=== PATIENT | female | born 1940 | race Caucasian/White ===

== ENCOUNTER 2017-05-13 16:07 | Emergency (ER) | payer MEDICARE, OTHER ==
[2017-05-13] MEDS ORDERED: HYDROcodone/Acetaminophen 5/325 mg Tablet ONE (16:31)
== END 2017-05-13 16:53 | disposition home or self-care (01) ==
LOC: SCSER 16:07
DX: S16.1XXA Strain of muscle, fascia and tendon at neck level, initial encounter (principal); E03.9 Hypothyroidism, unspecified; K21.9 Gastro-esophageal reflux disease without esophagitis; E78.5 Hyperlipidemia, unspecified; I10 Essential (primary) hypertension; J44.9 Chronic obstructive pulmonary disease, unspecified; E11.9 Type 2 diabetes mellitus without complications; M19.90 Unspecified osteoarthritis, unspecified site; F32.9 Major depressive disorder, single episode, unspecified; Z87.891 Personal history of nicotine dependence; X50.0XXA Overexertion from strenuous movement or load, initial encounter
CPT/HCPCS: 99283

== ENCOUNTER 2017-07-28 14:16 | Emergency (ER) | payer MEDICARE, OTHER | END 2017-07-28 16:44 | disposition left against medical advice (07) | LOC: ERS 14:16 | DX: Z53.21 Procedure and treatment not carried out due to patient leaving prior to being seen by health care provider (principal) ==

== ENCOUNTER 2017-07-28 15:14 | Inpatient (IN) | payer MEDICARE, OTHER ==
[2017-07-28 16:13] LABS: INR-International Normal Ratio 1.1; PTT 29.6 SEC (22.9-36.1); Prothrombin Time 14.5 SEC (12.0-14.7)
[2017-07-28 16:18] LABS: Band 2 % (5-11); Hemoglobin 10.8 g/dL (12.0-16.0); Hypochromia SLIGHT = 6-15 cells (100X) (0-5/hpf); Lymphocytes 3 % (21-51); MDiff Complete? YES; Mean Corpuscular HGB CONC 33.8 g/dL (32.0-36.0); Mean Corpuscular Hemoglobin 29.7 pg (27.0-31.0); Mean Platelet Volume 8.7 fL (7.4-10.4); Monocytes 5 % (0-10); Neutrophil 90 % (42-75); PLT Morphology Comment Appears Adequate; Platelet Count 161 thou/uL (130-400); RBC Distribution Width 13.9 % (11.5-14.5); Red Blood Cell (RBC) Count 3.65 mill/uL (4.20-5.40); Stomatocytes SLIGHT = 2-5 cells (100X) (0-1/hpf); White Blood Cell (WBC) Count 20.4 thou/uL (4.8-10.8)
[2017-07-28 16:22] LABS: ALT (SGPT) 26 U/L (8-55); AST (SGOT) 17 U/L (5-34); Alkaline Phosphatase 75 U/L (40-150); Anion Gap 16 mmol/L (10-20); BUN (Urea Nitrogen) 21 mg/dL (9.8-20.1); Bilirubin, Total 0.7 mg/dL (0.2-1.2); CK (CPK) 118 U/L (29-168); Calc. Creatinine Clearance 0 mL/min (70-130); Calcium 9.5 mg/dL (7.8-10.44); Carbon Dioxide 25 mmol/L (23-31); Chloride 102 mmol/L (98-107); Estimated GFR-MDRD 79; Globulin 2.7 g/dL (2.4-3.5); Glucose 177 mg/dL (83-110); Potassium 4.6 mmol/L (3.5-5.1); Protein, Total 6.7 g/dL (6.0-8.3); Sodium 138 mmol/L (136-145)
[2017-07-28 16:23] LABS: CKMB 2.5 ng/mL (0-6.6); Troponin I 0.016 ng/mL (< 0.028)
[2017-07-28] MEDS ORDERED: HYDROcodone/Acetaminophen 10/325 mg Tablet ONE (16:25)
--- NOTE | 2017-07-28 16:30 | RAD ---
AP VIEW CHEST: Date: 07/28/17 HISTORY: Cough. FINDINGS: Comparison made to previous exam from 12/26/16. AP view of chest demonstrates a left shoulder arthroplasty. The lungs are well aerated. No evidence o f acute intrathoracic abnormality is seen. No evidence of effusions, pneumonia, or pneumothorax seen. IMPRESSION: Unremarkable AP view of chest. POS: [facility]
[2017-07-28] MEDS ORDERED: Magnesium Sulfate 2 GM/NS 0.9% 50 ML BAG ONE (16:38)
[2017-07-28] MEDS ORDERED: methylPREDNISolone Sod Succ/PF 125 MG/2 ML VIAL ONE (16:38)
[2017-07-28] MEDS ORDERED: Sodium Chloride 0.9% 100 ML ONE (16:38)
[2017-07-28] MEDS ORDERED: Water For Inject, Bacteriostat 30 ML ONE (16:38)
[2017-07-28] MEDS ORDERED: cefTRIAXone\\ROCEPHIN 1 GM VIAL ONE (16:38)
[2017-07-28 17:02] LABS: Bilirubin Negative (Negative); Blood, Urine Negative (Negative); Clarity Hazy (Clear); Glucose, Urine (Dipstick) Negative (Negative); Leukocyte Small (Negative); Nitrite Positive (Negative); Protein, Urine (Dipstick) Trace mg/dL (Neg-Trace); Urobilinogen 0.2 mg/dL (0.2-1.0); pH, Urine 5.5 (5.0-9.0)
[2017-07-28 17:03] LABS: Bacteria/HPF 4+ HPF (None Seen); RBC/HPF None Seen HPF (0-3)
[2017-07-28 18:45] VITALS: BMI 32.3
[2017-07-28] MEDS ORDERED: Acetaminophen 325 MG TAB PO PRN ×2 (19:08→19:09)
[2017-07-28] MEDS ORDERED: Guaifenesin DM 100-10/5 ML UDCUP PO PRN (19:08)
[2017-07-28] MEDS ORDERED: Albuterol Sulfate 2.5 mg/3 ml Neb NEB PRN (19:08)
[2017-07-28] MEDS ORDERED: HYDROcodone/Acetaminophen 5/325 mg Tablet PO PRN ×2 (19:09)
[2017-07-28] MEDS ORDERED: Ondansetron HCl/PF 4 MG/2 ML Vial IVP PRN (19:09)
[2017-07-28] MEDS ORDERED: Ondansetron ODT 4 MG TAB SL PRN (19:09)
[2017-07-28] MEDS ORDERED: Azithromycin 500 MG in Sodium Chloride 0.9% 250 ML 250 ML IVPB SCH (19:15)
[2017-07-28 20:05] LABS: Troponin I Less than 0.010 ng/mL (< 0.028)
[2017-07-28] MEDS: Docusate 100 MG CAP PO SCH (20:21)
--- NOTE | 2017-07-28 20:36 | HP ---
DATE OF ADMISSION: 07/28/2017 CHIEF COMPLAINT: Shortness of breath. HISTORY OF PRESENT ILLNESS: This is a 77-year-old white female with a known history of COPD. She se es Dr. Ralph, Pulmonary, and she has a history of hypertension and hyperlipidemia. The patient was in her usual state of health until few days ago when she was visiting a [place] where she had a work for 5-7 miles and she was very tired in the heat and was having some cough and congestion. F ollowing this, she went to [place] to her granddaughter's graduation and where she had a fall and i njuring her left knee with the fracture of the tibia. The patient came to the [facility] tod luis miguel because of the worsening shortness of breath and she was noted to have saturations 88% in the ER a nd was started on nasal cannula oxygen on 4 liters and was also given Solu-Medrol and breathing treat ments almost for an hour. Following this, the patient was a little bit stabilized and she was transf erred for admission to [facility]. The patient was seen on the floor. She was alert and or iented, did not appear to be in any acute distress. She was continued on the breathing treatments. She is alert and oriented. She complains of pain at the left lower leg 7 on 10 intensity and relieved with pain medication. She was told by the ER physician that Orthopedic has been consulted and will be planning to see her geraldine rrow. The patient denied having any abdominal pain, no nausea, no vomiting, no diarrhea. She feels the current trigger for her COPD is her walking in the streets of [place]. PAST MEDICAL HISTORY: 1. Chronic obstructive pulmonary disease. 2. Chronic hypoxic respiratory failure. 3. Coronary artery disease with mild reversible defect in the LAD region by stress testing. 4. Gastroesophageal reflux disease. 5. Hypothyroidism. 6. Dyslipidemia. 7. Restless leg syndrome. 8. Hypertension. 9. Type 2 diabetes mellitus. 10. Degenerative joint disease. PAST SURGICAL HISTORY: Status post cholecystectomy, status post hernia repair, status post right tot al hip arthroplasty, status post shoulder arthroplasty. HOME MEDICATIONS: 1. Albuterol inhalation. 2. Enteric-coated aspirin 81 mg. 3. Lipitor 10 mg p.o. daily at bedtime. 4. Symbicort 160/4.5. 5. Vitamin D3. 6. Vitamin B12. 7. Nexium 40 mg daily. 8. Combivent 1 puff inhalation b.i.d. 9. Levothyroxine 100 mg daily. 10. Metoprolol 25 mg p.o. daily. 11. Benicar. 12. Zoloft 100 mg daily. 13. Spiriva HandiHaler 18 mcg. 14. Janumet mg 1 tablet p.o. at bedtime. ALLERGIES: No known drug allergies. FAMILY HISTORY: Positive for CVA in her father. Sister after complications of the chronic COPD. SOCIAL HISTORY: The patient is a former smoker, quit smoking 10 years ago. No history of alcohol, n o history of illicit drug use. REVIEW OF SYSTEMS: All 12 systems are reviewed with the patient thoroughly and found to be negative at this time. Constitutional: Weight loss or gain, sense of well-being, ability to conduct usual activities, exerc ise tolerance. Skin/Breast: Rash, itching, changes in hair growth or loss, nail changes, breast lumps, tenderness, swelling, nipple discharge. Eyes: Vision, double vision, tearing, blind spots, pain. ENT/Mouth: Headaches (location, time of onset, duration, precipitating factors), vertigo, lightheadedness, injury. Vision, double vision, tearing, blind spots, pain, nose b leeding, colds, obstruction, discharge, dental difficulties, gingival bleeding, dentures, neck stiffn ess, pain, tenderness, masses in thyroid or other areas Cardiovascular: Precordial pain, substernal distress, palpitations, syncope, dyspnea on exertion, or thopnea, nocturnal paroxysmal dyspnea, edema, cyanosis, hypertension, heart murmurs, varicosities, ph lebitis, claudication. Respiratory: Pain, shortness of breath, wheezing, stridor, cough, hemoptysis, fever or night sweats Gastrointestinal: Poor appetite, dysphagia, indigestion, abdominal pain, heartburn, eructation, naus ea, vomiting, hematemesis, jaundice, constipation, or diarrhea, abnormal stools (cortes-colored, tarry, bloody, greasy, foul smelling), flatulence, hemorrhoids, recent changes in bowel habits. Genitourinary: Urgency, frequency, dysuria, nocturia, hematuria, polyuria, oliguria, unusual (or chela nge in) color of urine, stones, hesitancy, change in size of stream, dribbling, acute retention or in continence, libido, potency. Musculoskeletal: Pain, swelling, redness or heat of muscles or joints, limitation, of motion, muscular weakness, atrophy, cramps. Neurologic/Psychiatric: Convulsions, paralyses, tremor, incoordination, parasthesias, difficulties w ith memory of speech, sensory or motor disturbances, or muscular coordination (ataxia, tremor), emoti onal problems, anxiety, depression, previous psychiatric care, unusual perceptions, hallucinations. Allergy/Immunologic: Skin rash, anemia, bleeding tendency, polydipsia, polyuria, intolerance to heat or cold. PHYSICAL EXAMINATION: VITAL SIGNS: Blood pressures are 126/72, heart rate of 76, respiratory rate 18, saturation 92% on 2 liters. GENERAL: The patient is a moderately built, moderately nourished. She does not appear to be in acut e distress. CARDIOVASCULAR: S1, S2 normal. No murmurs, rubs or gallops. HEENT: Atraumatic, normocephalic. PERRLA. Extraocular movements are intact. Oral mucosa is pink a nd moist. LUNGS: Bilateral air entry was equal. Wheezing was noted bilaterally. No crackles were noted. ABDOMEN: Soft, nontender, no guarding, no rebound tenderness. Bowel sounds normal. MUSCULOSKELETAL: No calf tenderness. No pedal edema. No joint tenderness. No joint swelling. Lef t lower extremity is in splint with reduced range of motion and tenderness in the knee area. SKIN: No cyanosis, no erythema, no rash. POLICY ADVISOR: Cranial nerve examination II-XII intact. No focal deficits were noted. PSYCHIATRIC: No signs of suicidal ideation. No signs of hedy. No signs of depression. LABORATORY DATA: 1. WBC was 20.4, hemoglobin is 10.8, hematocrit 32.1, platelets are 161. UA was positive for urinar y tract infection. 2. Sodium is 138, potassium 4.6, chloride 102, bicarbonate is 25, BUN is 21, creatinine 0.72. ASSESSMENT: 1. Sepsis. 2. Acute pyelonephritis. 3. Acute chronic obstructive pulmonary disease exacerbation. 4. Acute hypoxic respiratory failure. 5. Type 2 diabetes mellitus. 6. Hypertension. 7. Hyperlipidemia. 8. Left tibial fracture. PLAN: 1. Plan is to start the patient on IV antibiotics with levofloxacin 750 mg IV daily. Most likely th e source of infection is urinary tract infection. We will wait for urine cultures. 2. The patient has evidence of COPD exacerbation and has hypoxia. We will start the patient on Solu -Medrol 40 mg q.6 hours and we will continue with DuoNebs and albuterol nebulizer treatments. If the patient's respiratory status worsens, we will consult Pulmonary at that time. 3. The patient has hypoxic respiratory failure. She has home oxygen. She uses as needed, but raulrobyn tarik her oxygen requirements has gone up and initially she was saturating on 4 liters at 88%. We michael l closely monitor. 4. Type 2 diabetes mellitus, well-controlled. We will continue to monitor. We will restart the pat ient's home medications. 5. The patient has a left knee fracture. X-rays are not available as the x-rays were done in [facility]. Orthopedics have been consulted and the ER physician discussed with the Orthopedics and he planned to see the patient tomorrow. I would wait for their recommendations at that time. 6. DVT prophylaxis, SCDs. I spent 75 minutes with this patient.
[2017-07-28 22:16] LABS: Troponin I Less than 0.010 ng/mL (< 0.028)
[2017-07-28] MEDS: HYDROcodone/Acetaminophen 5/325 mg Tablet PO PRN (22:27)
[2017-07-28] MEDS: Ondansetron ODT 4 MG TAB PO PRN (22:28)
[2017-07-28] MEDS ORDERED: methylPREDNISolone Sod Succ/PF 125 MG/2 ML VIAL IVP SCH (23:59)
[2017-07-29 05:37] LABS: Anion Gap 9 mmol/L (10-20); BUN (Urea Nitrogen) 22 mg/dL (9.8-20.1); Calc. Creatinine Clearance 92 mL/min (70-130); Calcium 8.9 mg/dL (7.8-10.44); Carbon Dioxide 30 mmol/L (23-31); Chloride 100 mmol/L (98-107); Estimated GFR-MDRD 81; Glucose 265 mg/dL (83-110); Potassium 4.3 mmol/L (3.5-5.1); Sodium 135 mmol/L (136-145)
[2017-07-29 05:38] LABS: #Lymphocytes 0.4 thou/uL (1.20-3.40); #Monocytes 0.5 thou/uL (0.11-0.59); #Neutrophils 11.6 thou/uL (1.40-6.50); %Eosinophils 0.1 % (0.0-10.0); %Lymphocytes 3.3 % (21.0-51.0); %Monocytes 3.9 % (0.0-10.0); %Neutrophils 92.7 % (42.0-75.0); Mean Corpuscular HGB CONC 32.8 g/dL (32.0-36.0); Mean Corpuscular Hemoglobin 30.6 pg (27.0-31.0); Mean Corpuscular Volume 93.3 fl (81.0-99.0); Mean Platelet Volume 8.5 fL (7.4-10.4); Platelet Count 144 thou/uL (130-400); RBC Distribution Width 13.7 % (11.5-14.5); Red Blood Cell (RBC) Count 3.25 mill/uL (4.20-5.40); White Blood Cell (WBC) Count 12.6 thou/uL (4.8-10.8)
[2017-07-29] MEDS: HYDROcodone/Acetaminophen 5/325 mg Tablet PO PRN ×5 (06:33→23:03)
[2017-07-29] MEDS: Ondansetron ODT 4 MG TAB PO PRN ×3 (06:35→23:03)
[2017-07-29] MEDS: guaiFENesin ER 600 MG TAB PO SCH ×2 (09:05→20:45)
[2017-07-29] MEDS: Docusate 100 MG CAP PO SCH ×2 (09:05→20:45)
[2017-07-29] MEDS: Enoxaparin Sodium 40 MG/0.4 ML SYRINGE SC SCH (09:06)
--- NOTE | 2017-07-29 09:20 | RAD ---
TWO VIEWS LEFT KNEE: DATE: 07/29/17. HISTORY: Proximal tibial fracture. FINDINGS: Overlying knee brace is in place. This limits evaluation, but there does appear to be a transverse f racture involving the proximal left proximal left tibial metaphysis. Fracture extending to the tibia l plateau would be difficult to exclude given the overlying structures. There is also a fracture inv olving the proximal left fibula with slight displacement of fracture fragments. There is narrowing o f the medial and lateral joint compartments, greater involving the lateral joint compartment. N disl ocation is seen. There is subcutaneous soft tissue swelling seen anterior to the left knee. IMPRESSION: Fractures involving the proximal left tibia and fibula. Fractures involving the fibula are and mildly displaced. POS: [facility]
--- NOTE | 2017-07-29 09:27 | RAD ---
TWO VIEWS LEFT TIBIA AND FIBULA: Date: 07-29-17 History: History of tibia and fibula fracture. FINDINGS: There is a transverse fracture involving the proximal left tibial metaphysis. Due to overlying artifa ct from overlying brace, fracture to the tibial plateau is difficult to entirely exclude. There is al so a fracture involving the proximal left fibula with separation of the fracture fragments with the p roximal fracture fragment displaced posteriorly by 1.4 cm. There is narrowing of both medial and late ral joint compartment. No additional obvious fracture is seen. There is no dislocation. Subsequent so ft tissue swelling seen anterior to the knee. IMPRESSION: Fractures involving the proximal left tibia and fibula. POS: [facility]
--- NOTE | 2017-07-29 11:06 | RAD ---
LEFT ANKLE THREE VIEWS: History: 77-year-old female with history of tibia and fibular fracture. Comparison: Prior left tibia and fibula. Three views of the ankle demonstrate medial and lateral soft tissue swelling. There are degenerative changes of the ankle joint including some minimal subchondral cystic changes of the medial talar dome , evidence for an osteochondral lesion which may well be remote. No acute fracture. Degenerative rizzo ges including calcaneal plantar and Achilles enthesophytes and osteophytic changes of the midfoot. IMPRESSION: No evidence for acute fracture or dislocation of the ankle. Degenerative changes. Probable subchondra l cystic change involving the medial talar dome, evidence for an osteochondral lesion, probably remot e. No significant acute process. POS: [facility]
--- NOTE | 2017-07-29 13:05 | CON ---
DATE OF CONSULTATION: 07/29/2017 CONSULTING PHYSICIAN: Shaw Cook M.D. REASON FOR CONSULTATION: Left knee pain and injury. HISTORY OF PRESENT ILLNESS: This is a 77-year-old female who presented to our facility with complaints of shortness of breath. She has a strong history of heavy smoking and COPD. She also has a history of hypertension and hyperlipidemia. She was visiting family in [place] and before going onto her granddaughter's graduation in [place], [place]. She sustained a fall in [place] injuring her left knee and sustaining a tibial plateau fracture. She came back to the [facility] as she resides here and her daughter lives here as well. She was noted to have shortness of breath that was worsening and saturations in the 88 percentage in the ER. She has been admitted and is under the care of the medicine team as well as pulmonary team. We have been consulted for her left leg. She has been found to have a proximal tibia fracture. She also reports some mild ankle pain. She denies any numbness or tingling. She states that she has a known history of degenerative joint disease in the left knee and is planning to have her knee replaced sometime in the future. She has also had a previous right total hip replacement. She normally sees Dr. Roman or Dr. Whitfield. She is currently in a knee immobilizer. She reports no pain at rest. PAST MEDICAL HISTORY: Significant for COPD, hypertension, dyslipidemia, restless leg syndrome, diabetes type 2, and degenerative joint disease. PAST SURGICAL HISTORY: Cholecystectomy, hernia, right total hip and shoulder arthroplasty. ALLERGIES: No known drug allergies. FAMILY HISTORY: Noncontributory. SOCIAL HISTORY: The patient is a former heavy smoker, states that she quit in 1993. No history of alcohol or illicit drug use. REVIEW OF SYSTEMS: A 12-point review of systems was conducted and otherwise negative except for as stated above. PHYSICAL EXAMINATION: VITAL SIGNS: Temperature 97.7, pulse 100, respiratory rate of 20, blood pressure of 126/64. GENERAL: The patient is awake, alert, and oriented x3. She is in no acute distress. She is pleasant and cooperative with exam findings today. HEENT: Head is normocephalic, atraumatic. NECK: Supple. BREATHING: Nonlabored at this time. She is on nasal cannula oxygen. EXTREMITIES: The left lower extremity was evaluated. There is a knee immobilizer intact. The patient has soft tissue swelling present at the knee and into the lower leg and ankle. She is mildly tender at the proximal tibia. She is also mildly tender along the medial ankle. No significant lateral sided ankle tenderness. Pain elicited with active range of motion in the ankle. Range of motion not assessed in the knee. Distal neurovascular status is intact. No pain on passive stretch. Remainder of extremity exam is unremarkable. SKIN: Intact. RADIOGRAPHIC FINDINGS: Including a tib/fib of the left shows evidence of a proximal left tibia and fibula fractures. There does not appear to be any joint depression. There is evidence of subchondral sclerosis and osteophyte formation present. Of significance, there does appear to be a disruption in the medial malleolus. This is not visualized well on tibia films. We will obtain dedicated ankle films. ASSESSMENT: Left proximal tibia fracture, left ankle pain. PLAN: At this time, we will place the patient in a hinged knee brace allowing her 0-60 degrees of flexion. She will be toe touch weightbearing. We will obtain dedicated ankle films. Plan of care and x-rays were discussed with Dr. Cook today. He is in agreeance. The patient will plan to follow up with Dr. Roman in the clinic when she is discharged from the hospital. We will follow up with her once the ankle films are obtained. She is in agreeance with this plan of care and verbalized understanding. This is a nonoperative fracture at this time. [facility]
--- NOTE | 2017-07-29 14:26 | PDOC.PN ---
- Subjective Encounter Start Date: 07/29/17 Encounter Start Time: 10:00 Patient is seen today, Continuos to have SOb an Cough and Congestion. No nausea or Vomting noted. - Objective Resuscitation Status: Resuscitation Status FULL:Full Resuscitation MAR Reviewed: Yes Vital Signs & Weight: Vital Signs (12 hours) Temp Pulse Resp BP Pulse Ox 07/29/17 11:43 98.3 F 84 20 148/70 H 99 07/29/17 10:47 87 20 94 L 07/29/17 08:00 97.7 F 100 20 126/64 78 L 07/29/17 07:19 82 20 94 L 07/29/17 04:00 97.8 F 81 20 107/57 L 95 07/29/17 03:01 86 18 93 L Weight Weight 188 lb 6.4 oz I&O: 07/28/17 07/29/17 07/30/17 06:59 06:59 06:59 Intake Total 350 600 Balance 350 600 Result Diagrams: 07/29/17 05:14 07/29/17 05:14 Radiology Reviewed by me: Yes EKG Reviewed by me: Yes Phys Exam - Physical Examination HEENT: PERRLA, moist MMs Neck: no nodes Respiratory: no rales, wheezing present Cardiovascular: RRR, no significant murmur Gastrointestinal: soft, non-tender Musculoskeletal: no edema, pulses present Neurological: non-focal, normal sensation Lymphatic: no nodes Psychiatric: normal affect, A&O x 3 Dx/Plan (1) Acute and chronic respiratory failure with hypoxia Code(s): J96.21 - ACUTE AND CHRONIC RESPIRATORY FAILURE WITH HYPOXIA Status: Acute Comment: Improiving pt on Home Oxygen 2 Liter NC. (2) Acute exacerbation of chronic obstructive pulmonary disease (COPD) Code(s): J44.1 - CHRONIC OBSTRUCTIVE PULMONARY DISEASE W (ACUTE) EXACERBATION Status: Acute Comment: Will continue with Solumedrol/ Duo Nebs and Albuteral Nebs. Will do Acapella, and Mucinex for improved clearance. (3) Hyperglycemia Code(s): R73.9 - HYPERGLYCEMIA, UNSPECIFIED Status: Acute Comment: Will cotninue SSI, Levelmir. (4) Sepsis Code(s): A41.9 - SEPSIS, UNSPECIFIED ORGANISM Status: Acute Qualifiers: Sepsis type: Escherichia coli Qualified Code(s): A41.51 - Sepsis due to Escherichia coli [E. coli] Comment: Will continue With levofloxacin, responding to IV Abx, waiting for culture sentitvity. (5) Acute pyelonephritis Code(s): N10 - ACUTE PYELONEPHRITIS Status: Acute - Plan cont current plan of care, dillon catheter, continue antibiotics, PT/OT, respiratory therapy, incentive spirometry, out of bed/ambulate, DVT proph w/ lovenox * . Review of Systems - Review of Systems Eyes: negative: Pain, Vision Change, Conjunctivae Inflammation, Eyelid Inflammation, Redness, Other ENT: negative: Ear Pain, Ear Discharge, Nose Pain, Nose Discharge, Nose Congestion, Mouth Pain, Mouth Swelling, Throat Pain, Throat Swelling, Other Respiratory: Shortness of Breath, SOB with Excertion, Wheezing Cardiovascular: negative: chest pain, palpitations, orthopnea, paroxysmal nocturnal dyspnea, edema, light headedness, other Gastrointestinal: negative: Nausea, Vomiting, Abdominal Pain, Diarrhea, Constipation, Melena, Hematochezia, Other Genitourinary: negative: Dysuria, Frequency, Incontinence, Hematuria, Retention , Other Musculoskeletal: negative: Neck Pain, Shoulder Pain, Arm Pain, Back Pain, Hand Pain, Leg Pain, Foot Pain, Other Neurological: negative: Weakness, Numbness, Incoordination, Change in Speech, Confusion, Seizures, Other - Medications/Allergies Allergies/Adverse Reactions: Allergies Allergy/AdvReac Type Severity Reaction Status Date / Time No Known Allergies Allergy Verified 07/29/17 05:21 Medications: Current Medications Acetaminophen (Tylenol) 650 mg PO Q4H PRN PRN Reason: Headache/Fever or Pain Hydrocodone Bitart/Acetaminophen ([place] 5/325) 1 tab PO Q4H PRN PRN Reason: Moderate Pain (4-6) Last Admin: 07/29/17 11:03 Dose: 1 tab Albuterol Sulfate (Ventolin) 2.5 mg NEB [id number] PRN PRN Reason: SOB &/or Wheezing Albuterol/Ipratropium (Duoneb) 3 ml NEB [id number] [facility] Last Admin: 07/29/17 10:47 Dose: 3 ml Docusate Sodium (Colace) 100 mg PO BID [facility] Last Admin: 07/29/17 09:05 Dose: 100 mg Enoxaparin Sodium (Lovenox) 40 mg SC 0900 [facility] Last Admin: 07/29/17 09:06 Dose: 40 mg Guaifenesin (Mucinex) 1,200 mg PO Q12HR [facility] Last Admin: 07/29/17 09:05 Dose: 1,200 mg Guaifenesin/Dextromethorphan (Robitussin Dm) 15 ml PO Q4H PRN PRN Reason: Cough Levofloxacin 750 mg/ Device 150 mls @ 100 mls/hr IVPB Q24HR [facility] Last Admin: 07/28/17 20:21 Dose: 150 mls Methylprednisolone Sodium Succinate (Solu-Medrol) 40 mg IVP Q6HR [facility] Last Admin: 07/29/17 12:59 Dose: 40 mg Ondansetron HCl (Zofran Odt) 4 mg PO Q6H PRN PRN Reason: Nausea/Vomiting Last Admin: 07/29/17 06:35 Dose: 4 mg
[2017-07-29] MEDS ORDERED: Dextrose 5% in Water 1,000 ML IV PRN (17:35)
[2017-07-29] MEDS ORDERED: Dextrose 50% Abboject 50 ML SYRINGE IVP PRN (17:35)
[2017-07-29] MEDS ORDERED: HumaLOG 300 UNITS/3 ML VIAL SC PRN (17:35)
[2017-07-30 05:42] LABS: #Lymphocytes 0.4 thou/uL (1.20-3.40); #Monocytes 0.5 thou/uL (0.11-0.59); #Neutrophils 10.6 thou/uL (1.40-6.50); %Eosinophils 0.2 % (0.0-10.0); %Lymphocytes 3.8 % (21.0-51.0); %Monocytes 4.6 % (0.0-10.0); %Neutrophils 91.4 % (42.0-75.0); Hemoglobin 9.9 g/dL (12.0-16.0); Mean Corpuscular HGB CONC 31.5 g/dL (32.0-36.0); Mean Corpuscular Hemoglobin 29.4 pg (27.0-31.0); Mean Corpuscular Volume 93.4 fl (81.0-99.0); Mean Platelet Volume 8.7 fL (7.4-10.4); Platelet Count 147 thou/uL (130-400); RBC Distribution Width 13.5 % (11.5-14.5); Red Blood Cell (RBC) Count 3.38 mill/uL (4.20-5.40); White Blood Cell (WBC) Count 11.6 thou/uL (4.8-10.8)
[2017-07-30 05:53] LABS: Anion Gap 13 mmol/L (10-20); BUN (Urea Nitrogen) 22 mg/dL (9.8-20.1); Calc. Creatinine Clearance 96 mL/min (70-130); Calcium 9.2 mg/dL (7.8-10.44); Carbon Dioxide 29 mmol/L (23-31); Chloride 100 mmol/L (98-107); Estimated GFR-MDRD 86; Glucose 227 mg/dL (83-110); Potassium 4.5 mmol/L (3.5-5.1); Sodium 137 mmol/L (136-145)
[2017-07-30] MEDS: HumaLOG 300 UNITS/3 ML VIAL SC PRN ×3 (06:09→18:13)
--- NOTE | 2017-07-30 07:37 | ADD-CON ---
ADDENDUM Ankle x-rays reviewed with Dr. Cook. These do not demonstrate any acute fracture. There are de generative changes throughout the ankle. The patient was informed of these findings. She states she has some soreness overall in her ankle. We will order ice therapy. If she continues to report swel ling, we may add an Alejandro wrap to her ankle. Plan of care continues as stated previously. Weightbear as tolerated to the left lower extremity. Brace 0-60 degrees hinged at the knee. She will follow up with Dr. Roman in 2 weeks for outpatient evaluation.
[2017-07-30] MEDS: HYDROcodone/Acetaminophen 5/325 mg Tablet PO PRN ×3 (08:41→18:14)
[2017-07-30] MEDS: Docusate 100 MG CAP PO SCH ×2 (08:42→20:22)
[2017-07-30] MEDS: guaiFENesin ER 600 MG TAB PO SCH ×2 (08:42→20:22)
[2017-07-30] MEDS: Enoxaparin Sodium 40 MG/0.4 ML SYRINGE SC SCH (08:42)
[2017-07-30] MEDS: Cyclobenzaprine 10 MG TAB PO PRN (16:33)
[2017-07-30] MEDS ORDERED: rOPINIRole HCl 0.25 MG TAB PO SCH (21:00)
[2017-07-31 05:27] LABS: #Lymphocytes 0.5 thou/uL (1.20-3.40); #Monocytes 0.6 thou/uL (0.11-0.59); #Neutrophils 9.9 thou/uL (1.40-6.50); %Basophils 0.1 % (0.0-1.0); %Eosinophils 0.2 % (0.0-10.0); %Lymphocytes 4.6 % (21.0-51.0); %Neutrophils 90.1 % (42.0-75.0); Hemoglobin 9.9 g/dL (12.0-16.0); Mean Corpuscular HGB CONC 32.6 g/dL (32.0-36.0); Mean Platelet Volume 8.5 fL (7.4-10.4); Platelet Count 157 thou/uL (130-400); RBC Distribution Width 13.4 % (11.5-14.5)
[2017-07-31] MEDS: HumaLOG 300 UNITS/3 ML VIAL SC PRN ×2 (05:32→11:59)
[2017-07-31] MEDS ORDERED: Levothyroxine Sodium 88 MCG TAB PO SCH (06:00)
[2017-07-31] MEDS: Enoxaparin Sodium 40 MG/0.4 ML SYRINGE SC SCH (08:56)
[2017-07-31] MEDS: guaiFENesin ER 600 MG TAB PO SCH (08:58)
[2017-07-31] MEDS: Docusate 100 MG CAP PO SCH (08:58)
[2017-07-31] MEDS ORDERED: Aspirin 81 mg Enteric Coated Tablet PO SCH (09:00)
[2017-07-31] MEDS ORDERED: Atorvastatin Calcium 10 MG TAB PO SCH (09:00)
[2017-07-31] MEDS ORDERED: ROFLUMILAST 500 MCG PO SCH (09:00)
--- NOTE | 2017-07-31 11:26 | PDOC.PN ---
- Subjective Encounter Start Date: 07/31/17 Encounter Start Time: 08:00 Subjective: breathing better, talking in full sentences. - Objective Resuscitation Status: Resuscitation Status FULL:Full Resuscitation MAR Reviewed: Yes Vital Signs & Weight: Vital Signs (12 hours) Temp Pulse Resp BP Pulse Ox 07/31/17 08:29 97.7 F 95 20 138/64 96 07/31/17 06:17 67 16 98 07/31/17 04:00 97.5 F L 95 18 142/65 H 95 07/31/17 02:32 97 07/31/17 02:18 16 07/31/17 00:00 97.5 F L 77 18 165/77 H 97 Weight Weight 188 lb 6.4 oz I&O: 07/30/17 07/31/17 08/01/17 06:59 06:59 06:59 Intake Total 1600 1750 480 Balance 1600 1750 480 Result Diagrams: 07/31/17 04:48 07/30/17 05:04 Additional Labs: Accuchecks 07/31/17 07/30/17 05:21 17:19 POC Glucose 239 H 255 H Phys Exam - Physical Examination HEENT: PERRLA, moist MMs Neck: no JVD, supple Respiratory: no wheezing, no rales rhonchi++ Cardiovascular: RRR, no significant murmur Gastrointestinal: soft, non-tender, positive bowel sounds Musculoskeletal: no edema, pulses present Neurological: non-focal, moves all 4 limbs Psychiatric: normal affect, A&O x 3 Dx/Plan (1) Acute and chronic respiratory failure with hypoxia Code(s): J96.21 - ACUTE AND CHRONIC RESPIRATORY FAILURE WITH HYPOXIA Status: Acute Comment: Improiving pt on Home Oxygen 2 Liter NC. (2) Acute exacerbation of chronic obstructive pulmonary disease (COPD) Code(s): J44.1 - CHRONIC OBSTRUCTIVE PULMONARY DISEASE W (ACUTE) EXACERBATION Status: Acute (3) Anxiety and depression Code(s): F41.9 - ANXIETY DISORDER, UNSPECIFIED; F32.9 - MAJOR DEPRESSIVE DISORDER, SINGLE EPISODE, UNSPECIFIED Status: Chronic (4) Diabetes type 2, controlled Code(s): E11.9 - TYPE 2 DIABETES MELLITUS WITHOUT COMPLICATIONS Status: Chronic Qualifiers: Diabetes mellitus nursing home insulin use: without nursing home use Diabetes mellitus complication status: with unspecified complications Qualified Code(s) : E11.8 - Type 2 diabetes mellitus with unspecified complications (5) Dyslipidemia Code(s): E78.5 - HYPERLIPIDEMIA, UNSPECIFIED Status: Chronic (6) GERD (gastroesophageal reflux disease) Code(s): K21.9 - GASTRO-ESOPHAGEAL REFLUX DISEASE WITHOUT ESOPHAGITIS Status: Chronic Qualifiers: Esophagitis presence: esophagitis presence not specified Qualified Code(s) : K21.9 - Gastro-esophageal reflux disease without esophagitis (7) Hypertension Code(s): I10 - ESSENTIAL (PRIMARY) HYPERTENSION Status: Chronic Qualifiers: Hypertension type: essential hypertension Qualified Code(s): I10 - Essential (primary) hypertension (8) Hypothyroidism Code(s): E03.9 - HYPOTHYROIDISM, UNSPECIFIED Status: Chronic Qualifiers: Hypothyroidism type: unspecified Qualified Code(s): E03.9 - Hypothyroidism , unspecified (9) Paroxysmal a-fib Code(s): I48.0 - PAROXYSMAL ATRIAL FIBRILLATION Status: Chronic Comment: No need for anticoag per Cardiology (10) fracture tibia Status: Acute - Plan hemostable -: may dc to rehab -: steroid taper, nebs -: levaquin for both uti and copd flare up -: no wtg bearing on left LE per pt, f/u with * .
[2017-07-31] MEDS: HYDROcodone/Acetaminophen 5/325 mg Tablet PO PRN (11:45)
[2017-07-31] MEDS: Cyclobenzaprine 10 MG TAB PO PRN (11:47)
[2017-07-31 12:47] VITALS: TEMP 98.3
[2017-07-31 13:58] VITALS: BP 141/66
--- NOTE | 2017-07-31 23:19 | DIS ---
DATE OF ADMISSION: 08/01/2017 DATE OF DISCHARGE: 08/01/2017 DISCHARGE DISPOSITION: To inpatient rehabilitation. PRIMARY DISCHARGE DIAGNOSES: Acute on chronic obstructive pulmonary disease exacerbation, which is resolving; acute on chronic respiratory failure with hypoxia, resolving. SECONDARY DISCHARGE DIAGNOSES: Left tibial fracture, gastroesophageal reflux disease, hypertension, hypothyroidism, paroxysmal atrial fibrillation, dyslipidemia, hypertension, diabetes mellitus type 2, anxiety disorder. PROCEDURES DONE DURING HOSPITALIZATION: Two-view left knee x-ray done showed fractures involving proximal left tibia and fibula. Two view left tibia and fibula showed prior fractures involving proximal left tibia and fibula. Chest x -ray done showed no acute infiltrate. Left ankle 3-view x-ray done showed no acute fracture or dislocation of the ankle. No significant acute process was seen in the ankle. Urine culture grew E. coli sensitive to quinolones. H&H 10 and 30, platelet count 157. White count of 11. Discharge BUN and creatinine is 22 and 0.6. Troponin x3 is negative. CK-MB 2.5. DISCHARGE MEDICATIONS: Aspirin 81 mg p.o. daily; Lipitor 10 mg p.o. daily; Symbicort inhaler 2 puffs twice daily; Flexeril 10 mg 3 times daily p.r.n.; Colace 100 mg p.o. twice daily; Nexium 40 mg p.o. daily; Mucinex 1200 mg p.o. twice daily; [place] p.r.n. for pain; DuoNebs q.6 hourly; Levaquin 500 mg p.o. daily for 6 days; Synthroid 88 mcg p.o. daily; Toprol-XL 25 mg daily; Benicar 40 mg daily; Lovaza 1 gram p.o. twice daily; prednisone 10 mg p.o. 3 times daily for 3 days, then twice daily for 3 days, then daily for 4 days, then half a tablet daily for 4 days; Daliresp 500 mcg p.o. daily; ropinirole 0.5 mg p.o. at bedtime; sertraline 100 mg p.o. daily; Janumet extended release mg 1 tab q.p.m.; Spiriva inhaler 2 puffs daily. ALLERGIES: No known drug allergies. INPATIENT CONSULTS: Dr. Cook/Dr. Roman for Orthopedic Surgery. DISCHARGE PLAN: Patient to follow up with primary care physician in 1 week. She needs to follow up with her integration project manager, Dr. Jose Pagan in [address] Roman in 2-4 weeks. BRIEF COURSE DURING HOSPITALIZATION: Patient initially got admitted with complaints of shortness of breath. She was admitted for COPD exacerbation and urinary tract infection. Patient was initially hypoxic and was diagnosed with acute respiratory failure with hypoxia as well and supplemented with nasal cannula. Patient had left knee fracture and was worried about her ankle as well. Hence x-rays of the knee and ankles were obtained. She has had consultation with Dr. Cook for Orthopedic Surgery. Patient to continue on immobilization in a brace as before and is for toe touch weightbearing. In view of deconditioning, patient is being discharged to inpatient rehab for further recuperation. Her COPD exacerbation is resolving at present. She needs to continue steroid taper as advised. A total of 35 minutes was spent on discharge plan. Please see a [id number] documentation on [facility] for the day of discharge. KOREY
--- NOTE | 2017-08-02 16:00 | PQF ---
MONIQUE TORRE VINAYA KUMAR MD [id number] [address] [place] [address] [id number] CLINICAL DOCUMENTATION CLARIFICATION FORM: POST DISCHARGE Please exercise your independent, professional judgment in responding to the clarification form. Clinical indicators are provided on the bottom of this form for your review. Thank you. Please check appropriate box(s) to clarify if the following diagnosis has been ruled in or ruled out: ____SEPSIS (CDI/Coding list diagnosis here) [ x ] Ruled in diagnosis [ ] Continue to treat [ ] Resolved [ ] Ruled out diagnosis [ ] Cannot rule out diagnosis [ x ] Other diagnosis _sec to uti [ ] Unable to determine In addition, please specify: Present on Admission (POA): [ x ] Yes [ ] No [ ] Unable to determine For continuity of documentation, please document condition throughout progress notes and discharge summary. Thank You. CLINICAL INDICATORS - SIGNS / SYMPTOMS / LABS To support the diagnosis - Sepsis documented in HP 07/29/2017, WBC 20.4, UTI - HP 07/29/2017 To support resolution of diagnosis - Sepsis not documented after 07/29/2017 PN RISK FACTORS UTI - Discharge Summary 08/01/2017 TREATMENTS IV Levaquin 750mg IV - 07/29/2017 PN (This form is maintained as a part of the permanent medical record) 2014 [employer]. All Rights Reserved Iraida Waller, CCS, SKI LIFT ATTENDANT, CASC [email or web address]
== END 2017-07-31 13:04 | DRG 871 ==
LOC: SCSER 15:14 → 2SE 16:45
PROVIDERS: ADMIT Family Medicine; ATTEND Family Medicine
DX: A41.9 Sepsis, unspecified organism (principal); J96.21 Acute and chronic respiratory failure with hypoxia; S82.102A Unspecified fracture of upper end of left tibia, initial encounter for closed fracture; N10 Acute pyelonephritis; J44.1 Chronic obstructive pulmonary disease with (acute) exacerbation; I10 Essential (primary) hypertension; I48.0 Paroxysmal atrial fibrillation; E78.5 Hyperlipidemia, unspecified; E03.9 Hypothyroidism, unspecified; I25.10 Atherosclerotic heart disease of native coronary artery without angina pectoris; K21.9 Gastro-esophageal reflux disease without esophagitis; G25.81 Restless legs syndrome; W19.XXXA Unspecified fall, initial encounter; F41.9 Anxiety disorder, unspecified; F32.9 Major depressive disorder, single episode, unspecified; E11.65 Type 2 diabetes mellitus with hyperglycemia; Z90.49 Acquired absence of other specified parts of digestive tract; Z96.641 Presence of right artificial hip joint; Z96.619 Presence of unspecified artificial shoulder joint; Z79.82 Long term (current) use of aspirin; Z79.51 Long term (current) use of inhaled steroids; Z79.899 Other long term (current) drug therapy; Z87.891 Personal history of nicotine dependence
CPT/HCPCS: 36415; 36416; 71045; 80048; 80053; 81003; 81015; 82550; 82553; 83605; 84484; 85025; 85610; 85730; 87040; 87070; 87077; 87086; 87186; 87205; 93005; 94640; A4353; G8978-GP-CL; G8979-GP-CI; G8987-GO-CK; G8988-GO-CJ; J0696; J1650; J1956; J2920; J2930; J3475; J7050; J7620; Q0162

== ENCOUNTER 2018-11-27 08:19 | Outpatient (CLI) | payer MEDICARE, OTHER ==
[2018-11-27 15:07] LABS: #Basophils 0.1 thou/uL (0.0-0.2); #Eosinphils 0.1 thou/uL (0.0-0.7); #Lymphocytes 2.5 thou/uL (1.20-3.40); #Monocytes 0.6 thou/uL (0.11-0.59); #Neutrophils 6.3 thou/uL (1.40-6.50); %Basophils 0.6 % (0.0-1.0); %Eosinophils 1.5 % (0.0-10.0); %Lymphocytes 25.7 % (21.0-51.0); %Monocytes 6.5 % (0.0-10.0); %Neutrophils 65.6 % (42.0-75.0); Hemoglobin 14.2 g/dL (12.0-16.0); Mean Corpuscular HGB CONC 34.1 g/dL (32.0-36.0); Mean Corpuscular Hemoglobin 30.3 pg (27.0-31.0); Mean Corpuscular Volume 89.1 fL (78.0-98.0); Mean Platelet Volume 8.4 fL (7.4-10.4); Platelet Count 228 thou/uL (130-400); RBC Distribution Width 12.6 % (11.5-14.5); Red Blood Cell (RBC) Count 4.67 mill/uL (4.20-5.40); White Blood Cell (WBC) Count 9.5 thou/uL (4.8-10.8)
[2018-11-27 15:12] LABS: INR-International Normal Ratio 1.1; Prothrombin Time 13.7 SEC (12.0-14.7)
[2018-11-27 15:29] LABS: Anion Gap 17 mmol/L (10-20); BUN (Urea Nitrogen) 14 mg/dL (9.8-20.1); Calc. Creatinine Clearance 0 mL/min (70-130); Calcium 9.6 mg/dL (7.8-10.44); Carbon Dioxide 24 mmol/L (23-31); Chloride 104 mmol/L (98-107); Estimated GFR-MDRD 87; Glucose 98 mg/dL (83-110); Potassium 4.2 mmol/L (3.5-5.1); Sodium 141 mmol/L (136-145)
[2018-11-27 15:37] LABS: Bilirubin Negative (Negative); Blood, Urine Negative (Negative); Clarity Clear (Clear); Glucose, Urine (Dipstick) Normal (Negative); Leukocyte 25 Leu/uL (Negative); Nitrite Negative (Negative); Protein, Urine (Dipstick) Negative (Neg-Trace); RBC/HPF 0-3 HPF (0-3); Squamous Epithelial 0-3 HPF (0-3); Urobilinogen Normal mg/dL (Less than 2); WBC/HPF 0-3 HPF (0-3)
[2018-11-27 15:47] LABS: Bacteria/HPF None Seen HPF (None Seen)
== END 2018-11-27 08:20 | disposition home or self-care (01) ==
LOC: LABBT 08:19
PROVIDERS: ATTEND Orthopaedic Surgery
DX: Z01.818 Encounter for other preprocedural examination (principal); M17.12 Unilateral primary osteoarthritis, left knee
CPT/HCPCS: 80048; 81001; 85025; 85610; 87081; 87086; 93005; 93010

== ENCOUNTER 2018-12-08 08:51 | Inpatient (IN) | payer MEDICARE, OTHER ==
[2018-11-27 12:52] VITALS: BMI 29.2
--- NOTE | 2018-12-08 07:14 | HP ---
HISTORY OF PRESENT ILLNESS: The patient is a 78-year-old female with a long history of degenerative arthritis of the left knee, which became worse after she fell in July of 2017, sustaining a fracture of the tibial plateau and proximal fibula with possible intra-articular extension. This was treated nonoperatively, had a knee brace. The fracture has healed, but she has had progressive degenerative arthritis, which has persisted despite restriction of activities, bracing, anti-inflammatory medications, and restriction of activities. She has had previous injections in her knee without relief. Pain is now progressed to the point it is causing difficulty walking, getting dressed, and sleeping. She has been using a cane for ambulation, but was previously on a walker and wheelchair while the fracture was healing. PAST MEDICAL HISTORY: Please see the old chart. The patient has history of COPD, diabetes, high cholesterol, hypertension, thyroid replacement, and aortic stenosis. She has had a previous total shoulder replacement and previous right total hip replacement. CURRENT MEDICATIONS: Includes; 1. Symbicort. 2. Spiriva. 3. Lovaza. 4. Albuterol. 5. Metoprolol. 6. Nexium. 7. Janumet. 8. Synthroid. 9. Lipitor. 10. Zoloft. 11. Benicar. 12. Combivent. ALLERGIES: SHE HAS NO KNOWN ALLERGIES. FAMILY HISTORY: Otherwise unremarkable. SOCIAL HISTORY: Otherwise unremarkable. REVIEW OF SYSTEMS: Otherwise unremarkable. PHYSICAL EXAMINATION: GENERAL: Shows an elderly healthy-appearing female. HEENT: Unremarkable. NECK: Supple. CHEST: Clear. HEART: Regular rate and rhythm. ABDOMEN: Soft and nontender. PELVIC: Deferred. RECTAL: Deferred. BREASTS: Deferred. EXTREMITIES: Pertinent findings of the left knee, there is puffiness, but no definite effusion. There is mild valgus. There is tenderness over the lateral joint line. There is crepitus with range of motion. Range of motion is 2 to 95 degrees of palpable distal pulses. Antalgic gait. NEUROVASCULAR: Intact. There is no definite instability. X-RAYS: Reveal severe degenerative arthritis bilaterally with [id number] collapse laterally. Previous proximal tibia and fibular fractures are healed. IMPRESSION: 1. Degenerative arthritis, left knee. 2. Chronic obstructive pulmonary disease. 3. Diabetes. 4. Hypertension. PLAN: Left total knee replacement. The nature of the surgery, length of recovery, and potential complications such as infection, loss of motion, incomplete relief, delayed wound healing, neurovascular injury, thromboembolic phenomena, possible transfusion, and need for revision have been discussed in detail. Job ID: [id number]
[2018-12-08] MEDS ORDERED: Fentanyl 100 MCG/2 ML VIAL ONE ×3 (10:09→14:46)
[2018-12-08] MEDS ORDERED: Lidocaine 1% (PF) 30 ML VIAL ONE (10:09)
[2018-12-08] MEDS ORDERED: Midazolam HCl 2 mg/2 ml Vial ONE (10:09)
[2018-12-08] MEDS ORDERED: Sodium Chloride 0.9% 100 ML ONE (10:31)
[2018-12-08] MEDS ORDERED: Tranexamic Acid 1,000 MG/10 ML VIAL ONE ×2 (10:31→15:15)
[2018-12-08] MEDS ORDERED: Promethazine HCl 25 MG/ML VIAL IM PRN (11:13)
[2018-12-08] MEDS ORDERED: HYDROcodone/Acetaminophen 10/325 mg Tablet PO PRN ×2 (11:13)
[2018-12-08] MEDS ORDERED: Fentanyl 100 MCG/2 ML VIAL IV PRN (11:13)
[2018-12-08] MEDS ORDERED: Ondansetron PF 4 MG/2 ML Vial IVP PRN (11:13)
[2018-12-08] MEDS ORDERED: traMADol HCl 50 MG TAB PO PRN ×3 (11:13→15:34)
[2018-12-08] MEDS ORDERED: Zolpidem Tartrate 5 MG TAB PO PRN ×2 (11:13→15:34)
[2018-12-08] MEDS ORDERED: Bupivacaine/Epinephrine 0.25% 30 ML VIAL ONE (11:38)
[2018-12-08] MEDS ORDERED: Famotidine/PF 20 mg/2ml Vial ONE (12:05)
[2018-12-08] MEDS ORDERED: Ropivacaine 0.2% HCl/PF (40 MG/20 ML VIAL) ONE (13:37)
[2018-12-08] MEDS ORDERED: Ropivacaine 0.5% HCl/PF (150 MG/30 ML VIAL) ONE (13:37)
[2018-12-08] MEDS ORDERED: Lidocaine 1% PF 5 ML VIAL ONE (14:23)
[2018-12-08] MEDS ORDERED: Ondansetron PF 4 MG/2 ML Vial ONE (14:23)
[2018-12-08] MEDS ORDERED: PROPOFOL 200 MG/20 ML VIAL ONE (14:23)
[2018-12-08] MEDS ORDERED: Tranexamic Acid 1,000 MG in Sodium Chloride 0.9% 100 ML IVPB SCH ×2 (14:30→15:34)
--- NOTE | 2018-12-08 15:14 | RAD ---
Exam: XR Knee Lt 2 View HISTORY: Postop left total knee. COMPARISON: 07/29/2017 FINDINGS: There has been interval postsurgical changes related to placement of a left total knee prosthesis. Re mote healed fractures of the metaphysis of the proximal tibia and fibula are seen. No hardware complication is seen, and there is no acute fracture or dislocation. Subcutaneous emphysema is seen a bout the knee. IMPRESSION: Postsurgical changes related to left total knee prosthesis.
[2018-12-08] MEDS ORDERED: Promethazine HCl 25 MG/ML VIAL ONE (15:25)
[2018-12-08] MEDS ORDERED: Hyoscyamine Sulfate SL 0.125 mg Tablet SL PRN (15:34)
[2018-12-08] MEDS ORDERED: Promethazine HCl 25 MG/ML VIAL SLOW IVP PRN (15:34)
[2018-12-08] MEDS ORDERED: Acetaminophen 325 MG TAB PO PRN (15:34)
[2018-12-08] MEDS ORDERED: Non-Formulary Item 1 EACH (Ipratropium/Albuterol Sulfate [Combivent Respimat] 2 PUFF) INH PRN (15:34)
[2018-12-08] MEDS ORDERED: diphenhydrAMINE 25 MG CAP PO PRN (15:34)
[2018-12-08] MEDS ORDERED: Famotidine 20 MG TAB PO PRN (15:34)
[2018-12-08] MEDS ORDERED: Promethazine HCl 25 MG/ML VIAL IM/IV PRN (16:20)
[2018-12-08] MEDS ORDERED: Non-Formulary Medication 1 EACH PO PRN (16:20)
[2018-12-08] MEDS ORDERED: Ondansetron HCl/PF 4 MG/2 ML Vial IVP PRN (16:20)
[2018-12-08] MEDS ORDERED: SITAGLIPTIN PHOS PO SCH (17:00)
[2018-12-08] MEDS ORDERED: METFORMIN HCL PO SCH (17:00)
[2018-12-08] MEDS: Ketorolac Tromethamine 30 MG/ML VIAL IVP SCH ×2 (18:27→23:16)
[2018-12-08] MEDS: metFORMIN 500 MG TAB PO SCH (18:28)
[2018-12-08] MEDS: Alogliptin 25 MG TAB PO SCH (18:28)
[2018-12-08] MEDS ORDERED: CEFAZOLIN 2 GM in Premix Bag 1 BAG IVPB SCH (19:00)
[2018-12-08] MEDS: Ipratropium Bromide 2.5 ml Neb NEB SCH (19:17)
[2018-12-08] MEDS: Mometasone/Formoterol 120 PUFF INHALER INH SCH (19:21)
[2018-12-08] MEDS: Sodium Chloride 0.9% 1,000 ML IV SCH ×2 (20:01→21:21)
--- NOTE | 2018-12-08 20:50 | OP ---
DATE OF PROCEDURE: 12/08/2018 VASCULAR SPECIALISTS: Kal Padilla PA-C ANESTHESIA: General plus adductor canal and sciatic nerve blocks. PREOPERATIVE DIAGNOSIS: Degenerative arthritis, left knee. POSTOPERATIVE DIAGNOSIS: Degenerative arthritis, left knee. PROCEDURE PERFORMED: Left total knee replacement with cemented triathlon components with computer-assisted navigation (#3 femoral component, #3 primary tibial base plate with 9 mm CS plastic insert, and A29 all-plastic patellar component). DESCRIPTION OF PROCEDURE: After satisfactory anesthesia was induced in supine position, sequential compression device was placed on the nonoperative leg throughout the procedure. The left leg was then prepped and draped in routine sterile fashion. The left leg was elevated and exsanguinated with an Esmarch bandage, and the tourniquet was inflated to 250 mmHg. A longitudinal midline incision was made and carried down through the subcutaneous tissues. Bleeding points were controlled with Bovie cautery. Medial parapatellar arthrotomy was performed. The patella was dislocated laterally. There was marked tricompartmental degenerative arthritis of the knee, especially laterally with areas of exposed bone. There was also abundant scar tissue around the entire joint, which required excision to allow mobilization. This apparently was from the previous fracture of the proximal tibia, which required prolonged immobilization. Medial and lateral gutters were cleared. Patella was dislocated laterally. Meniscal remnants and osteophytes were removed. Using [employer] pinless navigation system and the appropriate guides, the distal femoral and proximal tibial articular surfaces were excised with an oscillating saw to accept the trial components. It was felt that a #3 femoral component and #4 tibial base plate with a 9 mm CS plastic insert gave appropriate size, fit, stability, and correction of the preoperative deformity. The patellar articular surface was excised to accept an all-plastic A29 patellar component. There was good range of motion and good patellar tracking. The trial components were removed. The knee was copiously irrigated with a pulsatile lavage. The bony surfaces were thoroughly cleaned and dried. The permanent components were then cemented in a single stage using one pack of cement premixed with 1 g of tobramycin powder. Excess cement was removed. There was again good fit and stability of the components. The knee was copiously irrigated. The medial retinaculum and quadriceps mechanism were closed with interrupted #2 Vicryl and a running #2 Quill. Subcutaneous tissues were closed with running 0 Quill suture. The skin was closed with running subcuticular 3-0 Monoderm and SurgiSeal skin adhesive. A sterile bulky compressive dressing was applied and the tourniquet deflated after 87 minutes. The foot promptly pinked up. A sequential compression device was applied to her operated leg, and she was awakened and taken to the recovery room in stable condition. There were no apparent intraoperative complications. The estimated blood loss was less than 100 mL. Job ID: [id number]
[2018-12-08] MEDS: Aspirin 81 mg Enteric Coated Tablet PO SCH (21:22)
[2018-12-08] MEDS: Fish Oil 1,000 MG CAP PO SCH (21:23)
[2018-12-08] MEDS: Ferrous Gluconate 324 MG TAB PO SCH (21:23)
[2018-12-08] MEDS: Senokot S 8.6-50 MG TAB PO SCH (21:23)
[2018-12-08] MEDS: CEFAZOLIN 2 GM in Premix Bag 1 BAG IVPB SCH (21:29)
[2018-12-08] MEDS: HYDROcodone/Acetaminophen 10/325 mg Tablet PO PRN (21:30)
[2018-12-08] MEDS: rOPINIRole HCl 0.25 MG TAB PO SCH (21:36)
[2018-12-08] MEDS ORDERED: Vancomycin HCl 1 GM in Premix Bag 1 BAG IVPB SCH (23:00)
[2018-12-08] MEDS: Ondansetron PF 4 MG/2 ML Vial IVP PRN (23:16)
[2018-12-09] MEDS: Ipratropium Bromide 2.5 ml Neb NEB SCH ×4 (01:14→18:24)
[2018-12-09 04:51] LABS: Mean Corpuscular HGB CONC 33.7 g/dL (32.0-36.0); Mean Corpuscular Hemoglobin 30.5 pg (27.0-31.0); Mean Corpuscular Volume 90.6 fL (78.0-98.0); Mean Platelet Volume 8.6 fL (7.4-10.4); Platelet Count 153 thou/uL (130-400); RBC Distribution Width 12.4 % (11.5-14.5); Red Blood Cell (RBC) Count 3.62 mill/uL (4.20-5.40)
[2018-12-09] MEDS: HYDROcodone/Acetaminophen 10/325 mg Tablet PO PRN ×2 (05:17→16:29)
[2018-12-09] MEDS: Levothyroxine Sodium 100 MCG TAB PO SCH (05:18)
[2018-12-09] MEDS: Ketorolac Tromethamine 30 MG/ML VIAL IVP SCH ×4 (05:19→23:00)
[2018-12-09] MEDS: CEFAZOLIN 2 GM in Premix Bag 1 BAG IVPB SCH (05:20)
[2018-12-09] MEDS: Mometasone/Formoterol 120 PUFF INHALER INH SCH ×2 (07:02→18:27)
[2018-12-09] MEDS: Ondansetron PF 4 MG/2 ML Vial IVP PRN (07:54)
[2018-12-09] MEDS ORDERED: Metoclopramide HCl 10 MG TAB PO SCH (09:45)
[2018-12-09] MEDS: Aspirin 81 mg Enteric Coated Tablet PO SCH ×2 (13:27→21:21)
[2018-12-09] MEDS: Atorvastatin Calcium 10 MG TAB PO SCH (13:30)
[2018-12-09] MEDS: Ferrous Gluconate 324 MG TAB PO SCH ×2 (13:30→21:22)
[2018-12-09] MEDS: Fish Oil 1,000 MG CAP PO SCH ×2 (13:30→21:22)
[2018-12-09] MEDS: Senokot S 8.6-50 MG TAB PO SCH ×2 (13:31→21:21)
[2018-12-09] MEDS: Multivitamin W/ Minerals 1 TAB PO SCH (13:31)
[2018-12-09] MEDS: Sodium Chloride 0.9% 1,000 ML IV SCH ×2 (13:31→21:22)
[2018-12-09] MEDS: Losartan 25 MG TAB PO SCH (13:32)
[2018-12-09] MEDS: Ropivacaine HCl/PF 250 ML in Premix Bag 1 BAG NERVE BLCK SCH (16:15)
[2018-12-09] MEDS: Alogliptin 25 MG TAB PO SCH (16:30)
[2018-12-09] MEDS: metFORMIN 500 MG TAB PO SCH (16:30)
[2018-12-09] MEDS ORDERED: Dextrose 50% Abboject 50 ML SYRINGE SLOW IVP PRN (17:03)
[2018-12-09] MEDS ORDERED: HumaLOG 300 UNITS/3 ML VIAL SC PRN (17:03)
[2018-12-09] MEDS ORDERED: Dextrose 5% in Water 1,000 ML IV PRN (17:03)
--- NOTE | 2018-12-09 19:20 | PDOC.HOSPP ---
- Subjective Encounter Date: 12/09/18 Encounter Time: 15:55 Subjective: pt up in bed complains of sob, her oxygen sat was 95% she does wear prn oxygen - Objective Vital Signs & Weight: Vital Signs (12 hours) Temp Pulse Resp BP Pulse Ox Pulse Ox 12/09/18 18:24 72 18 97 12/09/18 15:40 97.8 F 78 18 118/64 92 L 12/09/18 13:49 98 12/09/18 13:45 81 16 98 12/09/18 11:49 98.3 F 85 22 H 114/67 97 12/09/18 08:50 85 L 12/09/18 08:18 98.3 F 95 18 124/77 92 L 12/09/18 08:00 92 L Weight Admit Weight 170 lb Weight 170 lb I&O: 12/08/18 12/09/18 12/10/18 06:59 06:59 06:59 Intake Total 303.0 2280 Output Total 650 Balance 303.0 1630 Result Diagrams: 12/09/18 04:18 Additional Labs: Accuchecks 12/09/18 10:36 POC Glucose 132 H Hospitalist ROS - Review of Systems Cardiovascular: denies: chest pain, palpitations, orthopnea, paroxysmal noc. dyspnea, edema, light headedness, other Gastrointestinal: denies: nausea, vomiting, abdominal pain, diarrhea, constipation, melena, hematochezia, other Genitourinary: denies: dysuria, frequency, incontinence, hematuria, retention, other - Medication Medications: Active Medications Generic Name Dose Route Start Last Admin Trade Name Freq PRN Reason Stop Dose Admin Hydrocodone Bitart/Acetaminophen 1 tab 12/08/18 15:34 12/09/18 16:29 [place] 10/325 PO 1 tab Q4H PRN Administration Moderate Pain (4-6) Hydrocodone Bitart/Acetaminophen 2 tab 12/08/18 15:34 12/09/18 05:17 [place] 10/325 PO 2 tab Q4H PRN Administration Severe Pain (7-10) Alogliptin Benzoate 12.5 mg 12/08/18 17:00 12/09/18 16:30 Alogliptin PO 12.5 mg QPM-WM IRVING Administration Aspirin 81 mg 12/08/18 21:00 12/09/18 13:27 Ecotrin PO 81 mg BID IRVING Administration Atorvastatin Calcium 10 mg 12/09/18 09:00 12/09/18 13:30 Lipitor PO Not Given DAILY IRVING Ferrous Gluconate 324 mg 12/08/18 21:00 12/09/18 13:30 Fergon PO Not Given BID IRVING Fish Oil 1,000 mg 12/08/18 21:00 12/09/18 13:30 Fish Oil PO Not Given BID IRVING Hyoscyamine Sulfate 0.125 mg 12/08/18 15:34 12/09/18 08:02 Levsin Sl SL 0.125 mg Q4H PRN Administration IBS Ropivacaine 250 ml/ Device 250 mls @ 10 mls/hr 12/08/18 11:13 12/09/18 16:15 NERVE BLCK 250 mls INF IRVING Administration Sodium Chloride 1,000 mls @ 100 mls/hr 12/08/18 15:34 12/09/18 13:31 Normal Saline 0.9% IV Not Given .Q10H IRVING Ipratropium Vidal 2.5 ml 12/08/18 19:00 12/09/18 18:24 Atrovent NEB 2.5 ml [id number] IRVING Administration Iron/Minerals/Multivitamins 1 tab 12/09/18 09:00 12/09/18 13:31 Theragran M PO Not Given DAILY IRVING Ketorolac Tromethamine 15 mg 12/08/18 18:00 12/09/18 18:08 Toradol IVP 12/10/18 18:01 15 mg Q6HR IRVING Administration Levothyroxine Sodium 100 mcg 12/09/18 06:00 12/09/18 05:18 Synthroid PO 100 mcg 0600 IRVNIG Administration Losartan Potassium 100 mg 12/09/18 09:00 12/09/18 13:32 Cozaar PO Not Given DAILY IRVING Metformin HCl 1,000 mg 12/08/18 17:00 12/09/18 16:30 Glucophage PO 1,000 mg QPM-WM IRVING Administration Metoprolol Succinate 25 mg 12/09/18 09:00 12/09/18 13:27 Toprol Xl PO 25 mg DAILY IRVING Administration Mometasone Furoate/Formoterol Fumar 2 puff 12/08/18 18:30 12/09/18 18:27 Dulera 200 Mcg/5 Mcg Inhaler INH 2 puff BID-RT IRVING Administration Ondansetron HCl 4 mg 12/08/18 15:34 12/09/18 07:54 Zofran IVP 4 mg Q6H PRN Administration Nausea/Vomiting Pantoprazole Sodium 40 mg 12/09/18 09:00 12/09/18 09:51 Protonix PO 40 mg DAILY IRVING Administration Promethazine HCl 12.5 mg 12/08/18 11:13 12/09/18 10:24 Phenergan IM 12.5 mg Q4H PRN Administration Nausea Ropinirole HCl 0.5 mg 12/08/18 21:00 12/08/18 21:36 Requip PO 0.5 mg HS IRVING Administration Senna/Docusate Sodium 2 tab 12/08/18 21:00 12/09/18 13:31 Senokot S PO Not Given BID IRVING Sodium Chloride 10 ml 12/08/18 15:34 12/09/18 18:10 Flush - Normal Saline IVF 10 ml PRN PRN Administration Saline Flush - Exam Heart: negative: RRR, no murmur, no gallops, no rubs, normal peripheral pulses, irregular, diminshed peripheral pulses, murmur present, II/IV, III/IV Respiratory: negative: CTAB, no wheezes, no rales, no ronchi, normal chest expansion, no tachypnea, normal percussion, rales, rhonchi, tachypneic, wheezes Gastrointestinal: negative: soft, non-tender, non-distended, normal bowel sounds , no palpable masses, no hepatomegaly, no splenomegaly, no bruit, no guarding, no rigidity, tender to palpation, distended, diminished bowl sounds, voluntary guarding Hosp A/P (1) COPD (chronic obstructive pulmonary disease) Status: Acute (2) Diabetes type 2, controlled Code(s): E11.9 - TYPE 2 DIABETES MELLITUS WITHOUT COMPLICATIONS Status: Chronic Qualifiers: (3) Dyslipidemia Code(s): E78.5 - HYPERLIPIDEMIA, UNSPECIFIED Status: Chronic (4) Hypertension Code(s): I10 - ESSENTIAL (PRIMARY) HYPERTENSION Status: Chronic Qualifiers: - Plan pt has no wheezing, will continue prn duonebs. she did have nausea earlier which has improved. All her home meds have been started.
[2018-12-09] MEDS: rOPINIRole HCl 0.25 MG TAB PO SCH (21:21)
[2018-12-09] MEDS: Fentanyl 100 MCG/2 ML VIAL SLOW IVP PRN ×2 (21:33→22:09)
[2018-12-09] MEDS ORDERED: Cyclobenzaprine 10 MG TAB PO PRN (22:40)
[2018-12-10] MEDS: Ipratropium Bromide 2.5 ml Neb NEB SCH ×5 (00:02→23:35)
[2018-12-10] MEDS: HYDROcodone/Acetaminophen 10/325 mg Tablet PO PRN ×3 (03:31→16:36)
[2018-12-10] MEDS: Ketorolac Tromethamine 30 MG/ML VIAL IVP SCH ×3 (05:56→21:54)
[2018-12-10] MEDS: Levothyroxine Sodium 100 MCG TAB PO SCH (05:56)
[2018-12-10] MEDS: Sodium Chloride 0.9% 1,000 ML IV SCH ×2 (06:36→18:35)
[2018-12-10] MEDS: Mometasone/Formoterol 120 PUFF INHALER INH SCH ×2 (06:45→18:26)
[2018-12-10] MEDS: Aspirin 81 mg Enteric Coated Tablet PO SCH ×2 (08:42→21:54)
[2018-12-10] MEDS: Ferrous Gluconate 324 MG TAB PO SCH ×2 (08:42→21:54)
[2018-12-10] MEDS: Atorvastatin Calcium 10 MG TAB PO SCH (08:42)
[2018-12-10] MEDS: Multivitamin W/ Minerals 1 TAB PO SCH (08:43)
[2018-12-10] MEDS: Senokot S 8.6-50 MG TAB PO SCH ×2 (08:43→21:53)
[2018-12-10] MEDS: Fish Oil 1,000 MG CAP PO SCH ×2 (08:43→21:53)
[2018-12-10] MEDS: Losartan 25 MG TAB PO SCH (08:44)
[2018-12-10] MEDS: Ondansetron PF 4 MG/2 ML Vial IVP PRN (10:46)
[2018-12-10 13:40] LABS: Anion Gap 11 mmol/L (10-20); BUN (Urea Nitrogen) 11 mg/dL (9.8-20.1); Calc. Creatinine Clearance 86 mL/min (70-130); Calcium 8.7 mg/dL (7.8-10.44); Carbon Dioxide 29 mmol/L (23-31); Chloride 100 mmol/L (98-107); Estimated GFR-MDRD 85; Glucose 140 mg/dL (83-110); Magnesium 1.5 mg/dL (1.6-2.6); Potassium 3.7 mmol/L (3.5-5.1); Sodium 136 mmol/L (136-145)
--- NOTE | 2018-12-10 16:25 | PDOC.HOSPP ---
- Subjective Encounter Date: 12/10/18 Encounter Time: 12:00 Subjective: pt up in therapy complained of cramping in her abdomen and lower ext. - Objective Vital Signs & Weight: Vital Signs (12 hours) Temp Pulse Resp BP Pulse Ox 12/10/18 14:51 97.6 F 82 20 107/49 L 97 12/10/18 13:24 76 16 96 12/10/18 07:51 96 12/10/18 07:20 98.3 F 75 16 105/66 96 12/10/18 06:43 98 16 93 L Weight Admit Weight 170 lb Weight 170 lb I&O: 12/09/18 12/10/18 12/11/18 06:59 06:59 06:59 Intake Total 303.0 3523.0 Output Total 1750 Balance 303.0 1773.0 Result Diagrams: 12/09/18 04:18 12/10/18 12:46 Additional Labs: Accuchecks 12/10/18 12/10/18 12/09/18 14:56 06:05 21:45 POC Glucose 139 H 122 H 114 H Hospitalist ROS - Review of Systems Respiratory: denies: cough, dry, shortness of breath, hemoptysis, SOB with excertion, pleuritic pain, sputum, wheezing, other Cardiovascular: denies: chest pain, palpitations, orthopnea, paroxysmal noc. dyspnea, edema, light headedness, other Gastrointestinal: denies: nausea, vomiting, abdominal pain, diarrhea, constipation, melena, hematochezia, other - Medication Medications: Active Medications Generic Name Dose Route Start Last Admin Trade Name Freq PRN Reason Stop Dose Admin Hydrocodone Bitart/Acetaminophen 1 tab 12/08/18 15:34 12/10/18 08:53 Man 10/325 PO 1 tab Q4H PRN Administration Moderate Pain (4-6) Hydrocodone Bitart/Acetaminophen 2 tab 12/08/18 15:34 12/10/18 03:31 Man 10/325 PO 2 tab Q4H PRN Administration Severe Pain (7-10) Alogliptin Benzoate 12.5 mg 12/08/18 17:00 12/09/18 16:30 Alogliptin PO 12.5 mg QPM-WM IRVING Administration Aspirin 81 mg 12/08/18 21:00 12/10/18 08:42 Ecotrin PO 81 mg BID IRVING Administration Atorvastatin Calcium 10 mg 12/09/18 09:00 12/10/18 08:42 Lipitor PO 10 mg DAILY IRVING Administration Cyclobenzaprine HCl 10 mg 12/09/18 22:40 12/09/18 22:56 Flexeril PO 10 mg TIDPRN PRN Administration Muscle Spasm Fentanyl 50 mcg 12/08/18 15:34 12/09/18 22:09 Sublimaze SLOW IVP 50 mcg Q30MIN PRN Administration Moderate Pain (4-6) Ferrous Gluconate 324 mg 12/08/18 21:00 12/10/18 08:42 Fergon PO 324 mg BID IRVING Administration Fish Oil 1,000 mg 12/08/18 21:00 12/10/18 08:43 Fish Oil PO 1,000 mg BID IRVING Administration Hyoscyamine Sulfate 0.125 mg 12/08/18 15:34 12/09/18 08:02 Levsin Sl SL 0.125 mg Q4H PRN Administration IBS Ropivacaine 250 ml/ Device 250 mls @ 10 mls/hr 12/08/18 11:13 12/09/18 16:15 NERVE BLCK 250 mls INF IRVING Administration Sodium Chloride 1,000 mls @ 100 mls/hr 12/08/18 15:34 12/10/18 06:36 Normal Saline 0.9% IV Not Given .Q10H IRVING Ipratropium Waller 2.5 ml 12/08/18 19:00 12/10/18 13:24 Atrovent NEB 2.5 ml [id number] IRVING Administration Iron/Minerals/Multivitamins 1 tab 12/09/18 09:00 12/10/18 08:43 Theragran M PO 1 tab DAILY IRVING Administration Ketorolac Tromethamine 15 mg 12/08/18 18:00 12/10/18 12:30 Toradol IVP 12/10/18 18:01 15 mg Q6HR IRVING Administration Levothyroxine Sodium 100 mcg 12/09/18 06:00 12/10/18 05:56 Synthroid PO 100 mcg 0600 IRVING Administration Metformin HCl 1,000 mg 12/08/18 17:00 12/09/18 16:30 Glucophage PO 1,000 mg QPM-WM IRVING Administration Metoprolol Succinate 25 mg 12/09/18 09:00 12/10/18 08:45 Toprol Xl PO Not Given DAILY IRVING Mometasone Furoate/Formoterol Fumar 2 puff 12/08/18 18:30 12/10/18 06:45 Dulera 200 Mcg/5 Mcg Inhaler INH 2 puff BID-RT IRVING Administration Ondansetron HCl 4 mg 12/08/18 15:34 12/10/18 10:46 Zofran IVP 4 mg Q6H PRN Administration Nausea/Vomiting Pantoprazole Sodium 40 mg 12/09/18 09:00 12/10/18 08:42 Protonix PO 40 mg DAILY IRVING Administration Promethazine HCl 12.5 mg 12/08/18 11:13 12/09/18 10:24 Phenergan IM 12.5 mg Q4H PRN Administration Nausea Ropinirole HCl 0.5 mg 12/08/18 21:00 12/09/18 21:21 Requip PO 0.5 mg HS IRVING Administration Senna/Docusate Sodium 2 tab 12/08/18 21:00 12/10/18 08:43 Senokot S PO 2 tab BID IRVING Administration Sodium Chloride 10 ml 12/08/18 15:34 12/10/18 12:32 Flush - Normal Saline IVF 10 ml PRN PRN Administration Saline Flush Tramadol HCl 100 mg 12/08/18 15:34 12/10/18 10:32 Ultram PO 100 mg Q6H PRN Administration Moderate Pain (4-6) - Exam Heart: negative: RRR, no murmur, no gallops, no rubs, normal peripheral pulses, irregular, diminshed peripheral pulses, murmur present, II/IV, III/IV Respiratory: negative: CTAB, no wheezes, no rales, no ronchi, normal chest expansion, no tachypnea, normal percussion, rales, rhonchi, tachypneic, wheezes Gastrointestinal: negative: soft, non-tender, non-distended, normal bowel sounds , no palpable masses, no hepatomegaly, no splenomegaly, no bruit, no guarding, no rigidity, tender to palpation, distended, diminished bowl sounds, voluntary guarding Hosp A/P (1) COPD (chronic obstructive pulmonary disease) Status: Acute (2) Diabetes type 2, controlled Code(s): E11.9 - TYPE 2 DIABETES MELLITUS WITHOUT COMPLICATIONS Status: Chronic Qualifiers: (3) Dyslipidemia Code(s): E78.5 - HYPERLIPIDEMIA, UNSPECIFIED Status: Chronic (4) Hypertension Code(s): I10 - ESSENTIAL (PRIMARY) HYPERTENSION Status: Chronic Qualifiers: - Plan pt has no wheezing, will continue prn duonebs. she did have nausea earlier which has improved. All her home meds have been started. 12/10 will check bmp and mag. Encouraged to discontinue dillon. pt wants me to check a UA. will do. she is on chronic oxygen will continue.
[2018-12-10] MEDS: Ropivacaine HCl/PF 250 ML in Premix Bag 1 BAG NERVE BLCK SCH (16:27)
[2018-12-10] MEDS: Alogliptin 25 MG TAB PO SCH (16:38)
[2018-12-10] MEDS: metFORMIN 500 MG TAB PO SCH (16:38)
[2018-12-10 20:51] LABS: Bilirubin Negative (Negative); Blood, Urine 2+ (Negative); Glucose, Urine (Dipstick) Normal (Negative); Leukocyte 75 Leu/uL (Negative); Nitrite Negative (Negative); Protein, Urine (Dipstick) 20 mg/dL (Neg-Trace); Squamous Epithelial 0-3 HPF (0-3); Urobilinogen Normal mg/dL (Less than 2)
[2018-12-10 21:20] LABS: Bacteria/HPF 1+ HPF (None Seen); Clarity Hazy (Clear)
[2018-12-10 21:21] LABS: RBC/HPF 21-50 HPF (0-3); Unclassified Crystals None Seen HPF (None Seen)
[2018-12-10 21:22] LABS: Urine Culture Reflex Yes Yes
[2018-12-10] MEDS: rOPINIRole HCl 0.25 MG TAB PO SCH (21:54)
[2018-12-11] MEDS: Sodium Chloride 0.9% 1,000 ML IV SCH ×2 (04:02→12:33)
[2018-12-11] MEDS: Levothyroxine Sodium 100 MCG TAB PO SCH (05:12)
[2018-12-11] MEDS: Ipratropium Bromide 2.5 ml Neb NEB SCH ×2 (07:08→13:36)
[2018-12-11] MEDS: Mometasone/Formoterol 120 PUFF INHALER INH SCH (07:10)
[2018-12-11 07:36] VITALS: TEMP 98.7
[2018-12-11] MEDS ORDERED: Losartan 25 MG TAB PO SCH (09:00)
[2018-12-11] MEDS: HYDROcodone/Acetaminophen 10/325 mg Tablet PO PRN ×2 (09:08→09:09)
[2018-12-11] MEDS: Senokot S 8.6-50 MG TAB PO SCH (09:09)
[2018-12-11] MEDS: Fish Oil 1,000 MG CAP PO SCH (09:09)
[2018-12-11] MEDS: Aspirin 81 mg Enteric Coated Tablet PO SCH (09:09)
[2018-12-11] MEDS: Ferrous Gluconate 324 MG TAB PO SCH (09:09)
[2018-12-11] MEDS: Atorvastatin Calcium 10 MG TAB PO SCH (09:09)
[2018-12-11] MEDS: Multivitamin W/ Minerals 1 TAB PO SCH (09:24)
[2018-12-11 13:24] VITALS: BP 136/68
== END 2018-12-11 14:39 | DRG 470 ==
LOC: SDC 08:51 → SJJU 15:34
PROVIDERS: ADMIT Orthopaedic Surgery; ATTEND Orthopaedic Surgery
PROC: 0SRD0J9 Replacement of Left Knee Joint with Synthetic Substitute, Cemented, Open Approach (ICD-10-PCS; principal; 2018-12-08)
PROC: 8E0YXBG Computer Assisted Procedure of Lower Extremity, With Computerized Tomography (ICD-10-PCS; 2018-12-08)
DX: M17.12 Unilateral primary osteoarthritis, left knee (principal); J44.9 Chronic obstructive pulmonary disease, unspecified; E11.9 Type 2 diabetes mellitus without complications; I10 Essential (primary) hypertension; Z96.619 Presence of unspecified artificial shoulder joint; Z96.641 Presence of right artificial hip joint; Z79.899 Other long term (current) drug therapy; Z98.42 Cataract extraction status, left eye; Z98.41 Cataract extraction status, right eye; Z90.49 Acquired absence of other specified parts of digestive tract
CPT/HCPCS: 36415; 36416; 80048; 81001; 83735; 85027; 87086; 94640; C1713; C1776; J0690; J1885; J2001; J2250; J2405; J2550; J2704; J2795; J3010; J3370; J3475; J3490; J7620; J8597; S0028

== ENCOUNTER 2018-12-23 15:13 | Observation (INO) | payer MEDICARE ==
[~2018-12-23 15:13] MED LIST: ISOVUE-370 76%-LOCM 1 ML ONE
[2018-12-23 16:27] LABS: #Basophils 0.1 thou/uL (0.0-0.2); #Eosinphils 0.2 thou/uL (0.0-0.7); #Lymphocytes 2.2 thou/uL (1.20-3.40); #Monocytes 0.8 thou/uL (0.11-0.59); #Neutrophils 6.2 thou/uL (1.40-6.50); %Basophils 0.8 % (0.0-1.0); %Eosinophils 2.5 % (0.0-10.0); %Lymphocytes 23.5 % (21.0-51.0); %Neutrophils 65.3 % (42.0-75.0); Hemoglobin 11.9 g/dL (12.0-16.0); Mean Corpuscular HGB CONC 32.6 g/dL (32.0-36.0); Mean Corpuscular Hemoglobin 29.9 pg (27.0-31.0); Mean Corpuscular Volume 91.5 fL (78.0-98.0); Platelet Count 326 thou/uL (130-400); RBC Distribution Width 13.1 % (11.5-14.5); Red Blood Cell (RBC) Count 3.98 mill/uL (4.20-5.40); White Blood Cell (WBC) Count 9.5 thou/uL (4.8-10.8)
[2018-12-23 16:33] LABS: INR-International Normal Ratio 1.1; PTT 29.6 SEC (22.9-36.1); Prothrombin Time 13.9 SEC (12.0-14.7)
--- NOTE | 2018-12-23 16:43 | RAD ---
AP CHEST: 12/23/18 HISTORY: Nausea and vomiting. Lung finn are clear. No infiltrate. Heart and mediastinum unremarkable. IMPRESSION: No acute abnormality. POS: C
[2018-12-23 16:53] LABS: ALT (SGPT) 10 U/L (8-55); AST (SGOT) 12 U/L (5-34); Albumin 3.9 g/dL (3.4-4.8); Alkaline Phosphatase 107 U/L (40-110); Anion Gap 12 mmol/L (10-20); BUN (Urea Nitrogen) 14 mg/dL (9.8-20.1); Bilirubin, Total 0.6 mg/dL (0.2-1.2); CK (CPK) 49 U/L (29-168); Calc. Creatinine Clearance 0 mL/min (70-130); Calcium 9.4 mg/dL (7.8-10.44); Carbon Dioxide 29 mmol/L (23-31); Chloride 101 mmol/L (98-107); Estimated GFR-MDRD 80; Globulin 2.7 g/dL (2.4-3.5); Glucose 138 mg/dL (83-110); Magnesium 1.8 mg/dL (1.6-2.6); Potassium 3.9 mmol/L (3.5-5.1); Protein, Total 6.6 g/dL (6.0-8.3); Sodium 138 mmol/L (136-145)
[2018-12-23] MEDS ORDERED: Dextrose 5% in Water 1,000 ML IV PRN (19:24)
[2018-12-23] MEDS ORDERED: Dextrose 50% Abboject 50 ML SYRINGE SLOW IVP PRN (19:24)
--- NOTE | 2018-12-23 19:55 | CT ---
CTA CHEST WITH CONTRAST, AND 3-D VOLUME RENDERING CLINICAL INDICATION: Short of breath; Elevated D-dimer Comparison exam: 05/22/2015 FINDINGS: Pulmonary embolus:No significant filling defect is identified within the pulmonary arteries. Pulmonary parenchymal consolidation:None There are scattered alveolar lucencies compatible with pulmonary emphysema. Pleural effusion: None Pneumothorax: None Scattered atherosclerotic vascular disease, including coronary artery calcium. Osseous structures: No acute process. IMPRESSION: No acute pulmonary embolus. Pulmonary emphysema.
[2018-12-23 20:39] LABS: Lactic Acid 0.6 mmol/L (0.5-2.2)
[2018-12-23] MEDS ORDERED: Ipratropium Bromide 2.5 ml Neb NEB PRN (20:46)
[2018-12-23 20:49] LABS: Troponin I Less than 0.010 ng/mL (< 0.028)
[2018-12-23] MEDS ORDERED: Bacteriostatic Water 30 ML VIAL FS PRN (20:53)
[2018-12-23] MEDS ORDERED: methylPREDNISolone Sod Succ 40 MG VIAL IVP SCH (21:00)
[2018-12-23] MEDS ORDERED: Azithromycin 500 MG in Sodium Chloride 0.9% 250 ML 250 ML IVPB SCH (21:00)
[2018-12-23] MEDS: Sodium Chloride 0.9% 1,000 ML IV SCH (21:01)
--- NOTE | 2018-12-23 21:04 | PDOC.EVN ---
Event Note - Event Note Event Note: [id number] HP
[2018-12-23] MEDS: Heparin 5,000 UNITS/ML VIAL SC SCH (21:05)
[2018-12-23] MEDS ORDERED: rOPINIRole HCl 1 MG TAB PO SCH (21:45)
[2018-12-23] MEDS ORDERED: Mometasone/Formoterol 120 PUFF INHALER INH SCH (21:45)
[2018-12-23] MEDS ORDERED: Fish Oil 1,000 MG CAP PO SCH (21:45)
[2018-12-23] MEDS ORDERED: Famotidine 20 MG TAB PO PRN (21:46)
[2018-12-23] MEDS ORDERED: cefTRIAXone\\ROCEPHIN 1 GM in Sodium Chloride 0.9% 100 ML IVPB SCH (22:00)
[2018-12-23] MEDS ORDERED: Atorvastatin Calcium 10 MG TAB PO SCH (22:00)
--- NOTE | 2018-12-23 22:18 | HP ---
CHIEF COMPLAINT: Weakness, nausea, and shortness of breath. HISTORY OF PRESENT ILLNESS: Ms. Morelos is a 78-year-old female with past medical history of COPD/emphysema, hypothyroidism, GERD, hyperlipidemia, hypertension, diabetes, type 2, presents to the emergency room with nausea, vomiting, and shortness of breath. Workup in the emergency room, the patient was found to have a new onset atrial fibrillation. Initial troponin 0.01. Repeat troponin 0.01. TSH is 0.97. CT angiogram of the chest, no pulmonary embolism. The patient has recent left knee replacement. Until then, she is not feeling well as per patient. PAST MEDICAL HISTORY: As mentioned above in the history of present illness. PAST SURGICAL HISTORY: 1. Right hip replacement. 2. Left shoulder replacement. 3. Appendectomy. 4. Cholecystectomy. 5. Gastric bypass. 6. Hernia repair. 7. Tonsillectomy. 8. Left knee replacement. FAMILY HISTORY: Reviewed and noncontributory. SOCIAL HISTORY: She drinks socially. She is a former cigarette smoker. REVIEW OF SYSTEMS: Review of 14 systems negative except what is mentioned in the history of present illness. ALLERGIES: NO KNOWN ALLERGIES. PHYSICAL EXAMINATION: GENERAL: The patient is awake, alert, in moderate distress. Blood pressure 128/85, pulse is 87 to 91, temperature 98.4. The patient is afebrile. HEAD AND NECK: Normocephalic, atraumatic. NECK: Supple. No JVD. CHEST: Fair bilateral air entry. HEART: Irregularly irregular. ABDOMEN: Soft and nontender. Bowel sounds present. NEUROLOGIC: Awake, alert, oriented x3. PSYCHIATRIC: Normal mood. EXTREMITIES: No clubbing or cyanosis. LABORATORY DATA: EKG showed junctional rhythm with nonspecific ST changes. ASSESSMENT: 1. Nausea. 2. Shortness of breath. 3. Chronic obstructive pulmonary disease exacerbation. 4. Hypertension. 5. Hyperlipidemia. PLAN: 1. Admit. 2. Telemetry monitoring. 3. Serial cardiac enzymes. 4. 2D echo. 5. Bronchodilators. 6. IV steroids. 7. Oxygen to keep saturation more than 92%. 8. Reconcile home medications. 9. Deep venous thrombosis prophylaxis with low-dose heparin. 10. Expected length of stay is at least 1 midnight if the patient is stable and further workup negative. Job ID: [id number]
[2018-12-23] MEDS: HYDROcodone/Acetaminophen 7.5/325 mg Tablet PO PRN (22:59)
[2018-12-23 23:13] LABS: Troponin I Less than 0.010 ng/mL (< 0.028)
[2018-12-24] MEDS ORDERED: methylPREDNISolone Sod Succ 40 MG VIAL IVP SCH (06:00)
[2018-12-24] MEDS: Levothyroxine Sodium 100 MCG TAB PO SCH (06:14)
[2018-12-24] MEDS: HumaLOG 300 UNITS/3 ML VIAL SC PRN ×2 (06:16→12:28)
[2018-12-24] MEDS: Mometasone/Formoterol 120 PUFF INHALER INH SCH ×2 (07:25→18:15)
[2018-12-24] MEDS ORDERED: FLU VACC TS2019-20(65YR UP)/PF 180 MCG/0.5 ML SYRINGE IM ONE (09:00)
[2018-12-24] MEDS: Losartan 25 MG TAB PO SCH (09:11)
[2018-12-24] MEDS: Fish Oil 1,000 MG CAP PO SCH ×2 (09:11→20:57)
[2018-12-24] MEDS: Aspirin 81 mg Enteric Coated Tablet PO SCH (09:11)
[2018-12-24] MEDS: Heparin 5,000 UNITS/ML VIAL SC SCH ×3 (09:13→20:57)
[2018-12-24] MEDS: Ondansetron PF 4 MG/2 ML Vial IVP PRN ×2 (12:29→20:58)
--- NOTE | 2018-12-24 13:42 | PRG ---
DATE OF SERVICE: 12/24/2018 The patient states she is still having some nausea today. She says that she has had this since prior to her knee surgery. She actually saw Dr. Hodges, a week before her knee surgery and he recommended endoscopy when she had gotten through her knee surgery. She has not followed up to do that. She reports early satiety and nausea when attempting to eat, but she does continue to have an appetite. ADDENDUM The patient also reports that she had presented for a preop evaluation prior to her knee surgery. At that time, she had an EKG, which she says she was told revealed atrial fibrillation. She subsequently did not pursue any evaluation of the atrial fibrillation, because she had already seen Dr. Vallecillo for preop evaluation. He did an echocardiogram, stress test, and a heart catheterization, which was acceptable and she was approved for surgery given that she did not feel that the atrial fibrillation was significant. She came back, had a knee surgery and was subsequently discharged. Yesterday, she was having some nausea and had an EKG obtained at [facility]. However, the EKG machine was out of paper. Therefore, no hard copy of that is obtained. Apparently, a photograph of that was sent to the physician and the physician was concerned that there might have been atrial fibrillation and that is why she ended up in the emergency department. She reports occasionally having some palpitations, which is why she believes it is possible she may have some atrial fibrillation because she has never been diagnosed with it formally. OBJECTIVE: VITAL SIGNS: Temperature 97.4, pulse 91, respirations 18, O2 saturation 95% on room air, and BP 134/60. GENERAL APPEARANCE: Age-appropriate female, in no distress. Awake, alert, oriented, pleasant, and cooperative. HEENT: PERRL. No acute lesions. NECK: Supple and symmetric. No lymphadenopathy, JVD, or bruits. HEART: Regular rate and rhythm. No murmurs, gallops, or rubs. LUNGS: Clear to auscultation bilaterally. Slightly diminished. No wheezes or rales noted. ABDOMEN: Soft, nontender, and nondistended. Positive bowel sounds. EXTREMITIES: No edema. Postop dressing on left knee. PSYCH: Normal affect and behavior. NEUROLOGICAL: She appears to be fully intact. IMPRESSION AND PLAN: 1. Nausea and vomiting. This is not an acute problem. It has been present for at least 3 weeks now. She saw GI previously, they recommended endoscopy, which she has not yet had. She has lost about 10 pounds as a result of this. We will try to speak with Dr. Hodges today. In the meantime, continue with the PPI. It is possible may need to do endoscopy while she is here. 2. Possible atrial fibrillation, have no objective confirmation of that at this time. She has been in sinus rhythm the entire time she has been here. It is possible she may be going in and out of atrial fibrillation. She says that she has worn a heart monitor for Dr. Vallecillo in the past as well, but has never been diagnosed with atrial fibrillation, although she says it is possible that she may have it and just did not understand the explanation of it in the past. We will try to reach out to Dr. Vallecillo today to see if he has any confirmation one way or the other. I will try to track down her previous EKG and see if we can find some objective evidence of that. If so, we would need to consider anticoagulation. 3. Chronic obstructive pulmonary disease. She appears to be stable. She is breathing comfortably. Lung exam looks good. There was no evidence of infiltrate on her chest CT. We will discontinue the antibiotics and the steroids. Continue on bronchodilators. Job ID: [id number]
--- NOTE | 2018-12-24 17:47 | PDOC.EVN ---
Event Note - Event Note Event Note: Spoke to Dr. Hodges. He recommended that I put in the GI consult with the anticipation that she would get endoscopy tomorrow. Spoke with Dr. Vallecillo. I reviewed the prior EKG. She has multiple PAC's, but not true atrial fibrillation. Can likely follow up on this with Dr. Vallecillo as OP.
[2018-12-24] MEDS: metFORMIN XR 500 MG TAB PO SCH (19:12)
[2018-12-24] MEDS: Alogliptin 6.25 MG TAB PO SCH (19:12)
[2018-12-24] MEDS: Sodium Chloride 0.9% 1,000 ML IV SCH (19:13)
[2018-12-24] MEDS: rOPINIRole HCl 1 MG TAB PO SCH (20:56)
[2018-12-24] MEDS: Atorvastatin Calcium 10 MG TAB PO SCH (20:57)
[2018-12-24] MEDS: HYDROcodone/Acetaminophen 7.5/325 mg Tablet PO PRN (21:03)
--- NOTE | 2018-12-25 00:56 | CON ---
DATE OF CONSULTATION: 12/24/2018 CHIEF COMPLAINT: Nausea. HISTORY OF PRESENT ILLNESS: Ms. Morelos is a 78-year-old woman who has had nausea with intermittent episodes of vomiting over the last 4 or 5 months. She has complained of nausea lasting hours at a time, but really worsens upon eating anything. For the last month, this has been worsening with daily nausea. She had knee surgery 2 weeks ago and since then the nausea is continued such that she has eaten very little and lost 10 pounds over the course of the last 2 weeks. She has had episodes of vomiting intermittently. She vomited once the day after her knee surgery. She vomited back in September as well. The types of food that she eats does not seem to make a difference. She has had diarrhea with loose stools and some urgency after eating over the last couple of months up until her knee surgery 2 weeks ago. Since then, she has had constipation. She went 9 days without a bowel movement and then took multiple laxatives. After that she passed a few small stools. She has been taking hydrocodone and ondansetron. She was evaluated by Dr. Hodges on November 26 for the nausea and loose stools, however, she did not follow through with upper and lower endoscopy immediately after that because she wanted to get her knee worked on first. Due to the ongoing nausea, she has been readmitted to the hospital after knee surgery and GI was consulted to further evaluate. She does report she had stomach stapling back in 1979. At first, she could eat very small amount of food and she lost from a baseline weight of . More recently with this nausea, she has lost down to 265-pound range. She does get some vague aching abdominal pain over the last couple of weeks as well in the periumbilical and the epigastric region. This has been going on for months. She gets this pain and she will get episodes of vasovagal reaction where she sweats and becomes pale and gets tunnel vision and has actually passed out a couple of times. She also flushes. She has had vasovagal episodes with bowel movements, but not straining, but also with episodes of the abdominal pain. PAST MEDICAL HISTORY: Hypothyroidism, COPD, gastroesophageal reflux disease, hyperlipidemia, hypertension, diabetes mellitus. PAST SURGICAL HISTORY: Cholecystectomy, stomach stapling back in 1979, appendectomy, incisional hernia repair, tonsillectomy, knee surgery, shoulder surgery, and hip replacement. FAMILY HISTORY: Negative for GI malignancy. SOCIAL HISTORY: She quit smoking in the past. No alcohol or drugs. ALLERGIES: CODEINE. CURRENT INPATIENT MEDICATIONS: Include; 1. Aspirin. 2. Atorvastatin. 3. Famotidine. 4. Fish oil. 5. Hydrocodone. 6. Heparin subcu 3 times daily. 7. Insulin. 8. Levothyroxine. 9. Losartan. 10. Metformin. 11. Metoprolol. 12. Dulera inhaler. 13. Pantoprazole. 14. Ropinirole. REVIEW OF SYSTEMS: Negative x10 systems reviewed except as stated in the History of Present Illness. PHYSICAL EXAMINATION: VITAL SIGNS: Temperature 98.5, pulse 81, blood pressure 132/60. GENERAL: She is in no acute distress. Alert and oriented x3. EYES: Have no scleral icterus. Oropharynx is clear without lesions. No cervical or supraclavicular lymphadenopathy. LUNGS: Clear to auscultation bilaterally. HEART: Regular rate and rhythm without murmur. ABDOMEN: Soft, nontender, and nondistended. Bowel sounds are present. EXTREMITIES: No lower extremity edema. Cranial nerves are grossly intact. LABORATORY DATA: White blood cell count 9.5, hemoglobin 11.9, MCV 91.5, platelets 326. INR 1.1. Creatinine 0.71. Bilirubin 0.6, AST 12, ALT 10, alkaline phosphatase 107, albumin 3.9. IMPRESSION: 1. Chronic nausea over the last several months, worse with any oral intake, now associated with 10-pound weight loss. She does have a history of stomach stapling surgery 30 years ago. She has a history of diabetes and motility disorder could be related to that. We will rule out peptic ulcer or gastritis. 2. Change in bowel habits. She was having problems with diarrhea and urgency prior to her knee surgery a couple of weeks ago. Since then, she has had more problems with constipation while on hydrocodone and ondansetron. 3. Episodes of cramping periumbilical abdominal pain associated with vasovagal response and flushing. This does sound more vasovagal; however, I will check a gastrin level and a urine 5-HIAA as well. If symptoms continue, consider checking VIP level as well. RECOMMENDATIONS: 1. EGD tomorrow. 2. Proton pump inhibitor. 3. She will eventually require a colonoscopy. 4. Check iron studies. 5. Check 24-hour urine 5-HIAA and fasting gastrin level tomorrow morning. Job ID: [id number]
[2018-12-25 04:29] LABS: Iron 35 ug/dL (50-170); Iron Binding Capacity, Total 245 mcg/dL (265-497)
[2018-12-25] MEDS: Levothyroxine Sodium 100 MCG TAB PO SCH (06:10)
[2018-12-25 07:01] LABS: Ferritin 170.98 ng/mL (10-291)
[2018-12-25] MEDS: Mometasone/Formoterol 120 PUFF INHALER INH SCH ×2 (08:16→18:15)
[2018-12-25] MEDS: Heparin 5,000 UNITS/ML VIAL SC SCH ×3 (09:54→21:22)
[2018-12-25] MEDS: Losartan 25 MG TAB PO SCH ×2 (09:54→16:16)
[2018-12-25] MEDS: Fish Oil 1,000 MG CAP PO SCH ×2 (09:54→21:22)
[2018-12-25] MEDS: Aspirin 81 mg Enteric Coated Tablet PO SCH (09:54)
--- NOTE | 2018-12-25 13:23 | PDOC.HOSPP ---
- Subjective Subjective: Feels well. No complaints today. She is hoarse today. Says that is not uncommon. - Objective Vital Signs & Weight: Vital Signs (12 hours) Temp Pulse Resp BP Pulse Ox 12/25/18 11:21 97.9 F 80 18 145/67 H 94 L 12/25/18 08:52 98.6 F 88 18 138/60 93 L 12/25/18 08:14 78 16 96 12/25/18 03:56 97.7 F 97 18 125/58 L 92 L Weight Admit Weight 165 lb Weight 169 lb 11.2 oz I&O: 12/24/18 12/25/18 12/26/18 06:59 06:59 06:59 Intake Total 743 2114 Output Total 425 550 Balance 318 1564 Result Diagrams: 12/23/18 16:16 12/23/18 16:16 Additional Labs: Accuchecks 12/25/18 12/25/18 12/24/18 11:15 06:15 20:42 POC Glucose 104 108 162 H 12/24/18 16:23 POC Glucose 168 H Hospitalist ROS - Medication Medications: Active Medications Generic Name Dose Route Start Last Admin Trade Name Freq PRN Reason Stop Dose Admin Hydrocodone Bitart/Acetaminophen 1 tab 12/23/18 21:35 12/24/18 21:03 Hodges 7.5/325 PO 1 tab Q4H PRN Administration Severe Pain (7-10) Albuterol/Ipratropium 3 ml 12/24/18 01:00 12/25/18 08:14 Duoneb NEB 3 ml [id number] IRVING Administration Alogliptin Benzoate 12.5 mg 12/24/18 17:00 12/24/18 19:12 Alogliptin PO 12.5 mg QPM-WM IRVING Administration Aspirin 81 mg 12/24/18 09:00 12/25/18 09:54 Ecotrin PO Not Given DAILY IRVING Atorvastatin Calcium 10 mg 12/24/18 21:00 12/24/18 20:57 Lipitor PO 10 mg HS IRVING Administration Fish Oil 1,000 mg 12/24/18 09:00 12/25/18 09:54 Fish Oil PO Not Given BID IRVING Heparin Sodium (Porcine) 5,000 units 12/23/18 21:00 12/25/18 09:54 Heparin SC Not Given TID IRVING Sodium Chloride 1,000 mls @ 50 mls/hr 12/23/18 19:30 12/24/18 19:13 Normal Saline 0.9% IV 1,000 mls .Q20H IRVING Administration Insulin Human Lispro 0 units 12/23/18 19:24 12/24/18 12:28 Humalog SC 3 unit .MILD SLIDING SCALE PRN Administration Mild Correctional Scale Levothyroxine Sodium 100 mcg 12/24/18 06:00 12/25/18 06:10 Synthroid PO 100 mcg 0600 IRVING Administration Losartan Potassium 100 mg 12/24/18 09:00 12/25/18 09:54 Cozaar PO Not Given DAILY IRVING Metformin HCl 1,000 mg 12/24/18 17:00 12/24/18 19:12 Glucophage Xr PO 1,000 mg QPM-WM IRVING Administration Metoprolol Succinate 25 mg 12/24/18 09:00 12/25/18 09:49 Toprol Xl PO 25 mg DAILY IRVING Administration Mometasone Furoate/Formoterol Fumar 2 puff 12/24/18 06:30 12/25/18 08:16 Dulera 200 Mcg/5 Mcg Inhaler INH 2 puff BID-RT IRVING Administration Ondansetron HCl 4 mg 12/24/18 11:51 12/24/18 20:58 Zofran IVP 4 mg Q6H PRN Administration Nausea/Vomiting Pantoprazole Sodium 40 mg 12/24/18 09:00 12/25/18 09:49 Protonix PO 40 mg DAILY IRVING Administration Ropinirole HCl 2 mg 12/24/18 21:00 12/24/18 20:56 Requip PO 2 mg HS IRVING Administration - Exam General Appearance: NAD, awake alert General - other findings: Hoarse Heart: RRR, no murmur, no gallops, no rubs, normal peripheral pulses Respiratory: CTAB, no wheezes, no rales, no ronchi, normal chest expansion, no tachypnea, normal percussion Gastrointestinal: soft, non-tender, non-distended, normal bowel sounds, no palpable masses, no hepatomegaly, no splenomegaly, no bruit Skin: normal turgor Neurological: cranial nerve grossly intact, normal sensation to touch, no weakness, no focal deficits, no new deficit Musculoskeletal: normal tone, normal strength, no muscle wasting Psychiatric: normal affect, normal behavior, A&O x 3 Hosp A/P (1) PAC (premature atrial contraction) Code(s): I49.1 - ATRIAL PREMATURE DEPOLARIZATION Status: Acute (2) N&V (nausea and vomiting) Code(s): R11.2 - NAUSEA WITH VOMITING, UNSPECIFIED Status: Acute (3) History of arthroplasty of left knee Code(s): Z96.652 - PRESENCE OF LEFT ARTIFICIAL KNEE JOINT Status: Acute (4) COPD (chronic obstructive pulmonary disease) Status: Acute (5) Diabetes type 2, controlled Code(s): E11.9 - TYPE 2 DIABETES MELLITUS WITHOUT COMPLICATIONS Status: Chronic Qualifiers: (6) Dyslipidemia Code(s): E78.5 - HYPERLIPIDEMIA, UNSPECIFIED Status: Chronic (7) GERD (gastroesophageal reflux disease) Code(s): K21.9 - GASTRO-ESOPHAGEAL REFLUX DISEASE WITHOUT ESOPHAGITIS Status: Chronic Qualifiers: Esophagitis presence: esophagitis presence not specified Qualified Code(s) : K21.9 - Gastro-esophageal reflux disease without esophagitis (8) Hypertension Code(s): I10 - ESSENTIAL (PRIMARY) HYPERTENSION Status: Chronic Qualifiers: (9) Hypothyroidism Code(s): E03.9 - HYPOTHYROIDISM, UNSPECIFIED Status: Chronic Qualifiers: Hypothyroidism type: unspecified Qualified Code(s): E03.9 - Hypothyroidism , unspecified - Plan Discussed EKG findings. Still in NSR here. Ok to follow up with Dr. Vallecillo. EGD this morning. Possibly home later today.
[2018-12-25] MEDS: Sodium Chloride 0.9% 1,000 ML IV SCH (16:17)
[2018-12-25] MEDS: metFORMIN XR 500 MG TAB PO SCH (17:39)
[2018-12-25] MEDS: Alogliptin 6.25 MG TAB PO SCH (17:39)
[2018-12-25] MEDS: Atorvastatin Calcium 10 MG TAB PO SCH (21:22)
[2018-12-25] MEDS: rOPINIRole HCl 1 MG TAB PO SCH (21:23)
--- NOTE | 2018-12-25 22:02 | OP ---
DATE OF PROCEDURE: 12/25/2018 PROCEDURE PERFORMED: Esophagogastroduodenoscopy (diagnostic). INDICATION FOR PROCEDURE: Chronic nausea and vomiting. DESCRIPTION OF PROCEDURE: After the risks and benefits of the procedure were explained to the patient including risks of bleeding, infection, perforation, reactions to anesthesia, aspiration and/or pain, informed consent was obtained. The patient was then taken to the endoscopy suite, where deep sedation was administered via propofol and anesthesia support. Prior to sedation, the patient was maneuvered into the left lateral decubitus position in anticipation of the EGD. Once the patient was in position and adequately sedated, the standard gastroscope was introduced into the mouth with intubation of the esophagus, stomach, and the proximal small intestines with the findings listed below. The patient tolerated the procedure well with no immediate perioperative complications. Upon conclusion of the procedure, all equipment was removed from the patient and she was transferred to PACU in satisfactory condition. FINDINGS: Esophagus: Normal-appearing mucosa was seen in the proximal, mid, and distal esophagus. At the gastroesophageal junction, there may be a possible partial nonobstructive ring, but it was difficult to see during this examination. Otherwise, there was no evidence of erosions, ulcerations, mass lesions, or active/recent bleeding. There was also no evidence of erosive changes in the distal esophagus consistent with acid reflux. Upon entry into the stomach, there was noted to be 2 orifices that led into the distal stomach, one of which seems to have been part of the vertical band gastroplasty. However, the stapled portion of the gastroplasty has broken down with a fistulous connection between the pouch and the rest of the stomach at this time. There was some retained fluid/pills within the gastric pouch itself, but otherwise normal-appearing mucosa was seen in the gastric cardia, fundus, body, greater curvature, antrum, and incisura. There was no evidence of erosions, ulcerations, mass lesions, or active/recent bleeding. Duodenum: Normal-appearing mucosa was seen in both the duodenal bulb and second portion of the duodenum. There was no evidence of erosions, ulcerations, mass lesions, or active/recent bleeding. IMPRESSION: 1. Surgical change consistent with a vertical band gastroplasty seen in the proximal stomach, that has broken down with a fistulous connection between the gastric pouch and the remaining stomach. 2. Otherwise normal upper endoscopy. RECOMMENDATIONS: 1. Would attempt to maximize the patient's acid reflux medications with pantoprazole 40 mg in the morning while using famotidine 40 mg at night prior to bedtime. 2. Would obtain a gastric emptying study for evaluation of possible gastroparesis contributing to her chronic nausea and vomiting. 3. If the gastric emptying study is negative, would also consider possible CT scan of the brain for any intracranial abnormalities. 4. Would attempt to minimize any narcotic administration as they can be very constipating and cause nausea and vomiting in and of themselves. We will continue to follow. Please call with any questions. Job ID: [id number]
[2018-12-25 22:31] LABS: #Eosinphils 0.2 thou/uL (0.0-0.7); #Lymphocytes 1.9 thou/uL (1.20-3.40); #Monocytes 0.4 thou/uL (0.11-0.59); #Neutrophils 3.6 thou/uL (1.40-6.50); %Basophils 0.6 % (0.0-1.0); %Eosinophils 2.6 % (0.0-10.0); %Lymphocytes 30.7 % (21.0-51.0); %Monocytes 6.7 % (0.0-10.0); %Neutrophils 59.5 % (42.0-75.0); Hemoglobin 9.8 g/dL (12.0-16.0); Mean Corpuscular HGB CONC 33.2 g/dL (32.0-36.0); Mean Corpuscular Hemoglobin 30.4 pg (27.0-31.0); Mean Corpuscular Volume 91.5 fL (78.0-98.0); Mean Platelet Volume 6.9 fL (7.4-10.4); Platelet Count 215 thou/uL (130-400); Red Blood Cell (RBC) Count 3.22 mill/uL (4.20-5.40)
[2018-12-25 22:50] LABS: Anion Gap 9 mmol/L (10-20); BUN (Urea Nitrogen) 15 mg/dL (9.8-20.1); Calc. Creatinine Clearance 89 mL/min (70-130); Calcium 8.6 mg/dL (7.8-10.44); Carbon Dioxide 27 mmol/L (23-31); Chloride 106 mmol/L (98-107); Estimated GFR-MDRD 90; Glucose 111 mg/dL (83-110); Magnesium 1.5 mg/dL (1.6-2.6); Potassium 3.6 mmol/L (3.5-5.1); Sodium 138 mmol/L (136-145)
[2018-12-26] MEDS: Levothyroxine Sodium 100 MCG TAB PO SCH (05:52)
[2018-12-26] MEDS: Mometasone/Formoterol 120 PUFF INHALER INH SCH ×2 (07:32→18:50)
[2018-12-26] MEDS: Sodium Chloride 0.9% 1,000 ML IV SCH (07:51)
[2018-12-26] MEDS: Heparin 5,000 UNITS/ML VIAL SC SCH ×3 (13:38→21:00)
[2018-12-26] MEDS: Fish Oil 1,000 MG CAP PO SCH ×2 (14:20→20:54)
[2018-12-26] MEDS: Aspirin 81 mg Enteric Coated Tablet PO SCH (14:20)
[2018-12-26] MEDS: Losartan 25 MG TAB PO SCH (14:20)
--- NOTE | 2018-12-26 14:32 | NM ---
RADIONUCLIDE GASTRIC EMPTYING SCAN: HISTORY: A 78-year-old female with chronic nausea and vomiting, reflux after meals. RADIOPHARMACEUTICAL: 2.2 mCi Technetium 99m sulfur colloid administered orally in scrambled eggs. FINDINGS: There is 56% emptying of the ingested gastric contents at 1 hours, 81% emptying at 2 hours, 88% empty ing at 3 hours, and 88% emptying at 4 hours. IMPRESSION: Delayed gastric emptying. POS: TPC
[2018-12-26 16:04] VITALS: BMI 29.5
--- NOTE | 2018-12-26 16:17 | PRG ---
DATE OF SERVICE: 12/26/2018 SUBJECTIVE: Ms. Morelos had a gastric emptying scan today. She has some nausea, but is tolerating her diet well. OBJECTIVE: VITAL SIGNS: Temperature is 98.1, pulse 88, and blood pressure 139/77. GENERAL: She is in no acute distress. Alert and oriented x3. LUNGS: Clear to auscultation bilaterally. HEART: Regular rate and rhythm without murmur. ABDOMEN: Soft, nontender, and nondistended. Bowel sounds are present. EXTREMITIES: No lower extremity edema. LABORATORY DATA: Hemoglobin is 9.8. INR 1.1. Creatinine 0.64. IMPRESSION: Chronic nausea. This is worsened lately after her knee surgery, which might be related to opioid pain medications. She has had underlying diarrhea, but became constipated following the surgery. Esophagogastroduodenoscopy yesterday showed the surgical changes of vertical band gastroplasty. Gastric emptying scan today was very slightly delayed at 88%, which is unlikely of major clinical significance. RECOMMENDATIONS: 1. She is tolerating an oral diet and plan is to let her discharge today. 2. She will give a trial of low-dose metoclopramide before meals and take small more frequent meals. 3. She will follow up with Dr. Hodges in the office. 4. She should follow through with colonoscopy as an outpatient with Dr. Hodges. Job ID: [id number]
[2018-12-26] MEDS: Alogliptin 6.25 MG TAB PO SCH (18:03)
[2018-12-26] MEDS: metFORMIN XR 500 MG TAB PO SCH (18:04)
[2018-12-26] MEDS: Metoclopramide 10 MG/10 ML UDCUP PO SCH ×2 (18:05→20:55)
[2018-12-26] MEDS ORDERED: Polyethylene Glycol 3350 17 GM Packet PO PRN (20:47)
[2018-12-26] MEDS: Atorvastatin Calcium 10 MG TAB PO SCH (20:54)
[2018-12-26] MEDS: rOPINIRole HCl 1 MG TAB PO SCH (20:54)
[2018-12-26] MEDS: HYDROcodone/Acetaminophen 7.5/325 mg Tablet PO PRN (21:01)
[2018-12-27] MEDS: Levothyroxine Sodium 100 MCG TAB PO SCH (05:22)
[2018-12-27] MEDS: Sodium Chloride 0.9% 1,000 ML IV SCH (05:53)
[2018-12-27] MEDS: Mometasone/Formoterol 120 PUFF INHALER INH SCH (07:04)
[2018-12-27] MEDS: Metoclopramide 10 MG/10 ML UDCUP PO SCH ×2 (07:25→11:07)
[2018-12-27] MEDS: Aspirin 81 mg Enteric Coated Tablet PO SCH (08:31)
[2018-12-27] MEDS: Fish Oil 1,000 MG CAP PO SCH (08:32)
[2018-12-27] MEDS: Heparin 5,000 UNITS/ML VIAL SC SCH (08:32)
[2018-12-27] MEDS: Losartan 25 MG TAB PO SCH (08:32)
--- NOTE | 2018-12-27 11:03 | PDOC.HOSPP ---
- Subjective Subjective: Actually feels pretty good today. No nausea so far. Hasn't eaten much. Did have a little knee pain and took a hydrocodone. She has had BM this morning. - Objective Vital Signs & Weight: Vital Signs (12 hours) Temp Pulse Resp BP Pulse Ox 12/27/18 07:39 99.8 F H 86 20 156/68 H 93 L 12/27/18 07:02 75 14 98 12/27/18 04:18 98.0 F 82 18 138/65 96 12/27/18 00:07 12 Weight Admit Weight 165 lb Weight 164 lb 1.6 oz I&O: 12/26/18 12/27/18 12/28/18 06:59 06:59 06:59 Intake Total 1200 1410 Output Total 1100 Balance 100 1410 Result Diagrams: 12/25/18 22:22 12/25/18 22:22 Additional Labs: Accuchecks 12/27/18 12/26/18 12/26/18 05:24 20:58 17:21 POC Glucose 96 112 H 95 12/26/18 12:43 POC Glucose 92 Hospitalist ROS - Medication Medications: Active Medications Generic Name Dose Route Start Last Admin Trade Name Freq PRN Reason Stop Dose Admin Hydrocodone Bitart/Acetaminophen 1 tab 12/23/18 21:35 12/26/18 21:01 [place] 7.5/325 PO 1 tab Q4H PRN Administration Severe Pain (7-10) Albuterol/Ipratropium 3 ml 12/24/18 01:00 12/27/18 07:02 Duoneb NEB 3 ml [id number] IRVING Administration Alogliptin Benzoate 12.5 mg 12/24/18 17:00 12/26/18 18:03 Alogliptin PO 12.5 mg QPM-WM IRVING Administration Aspirin 81 mg 12/24/18 09:00 12/27/18 08:31 Ecotrin PO 81 mg DAILY IRVING Administration Atorvastatin Calcium 10 mg 12/24/18 21:00 12/26/18 20:54 Lipitor PO 10 mg HS IRVING Administration Fish Oil 1,000 mg 12/24/18 09:00 12/27/18 08:32 Fish Oil PO 1,000 mg BID IRVING Administration Heparin Sodium (Porcine) 5,000 units 12/23/18 21:00 12/27/18 08:32 Heparin SC Not Given TID [facility] Sodium Chloride 1,000 mls @ 50 mls/hr 12/23/18 19:30 12/27/18 05:53 Normal Saline 0.9% IV Not Given .Q20H [facility] Insulin Human Lispro 0 units 12/23/18 19:24 12/24/18 12:28 Humalog SC 3 unit .MILD SLIDING SCALE PRN Administration Mild Correctional Scale Levothyroxine Sodium 100 mcg 12/24/18 06:00 12/27/18 05:22 Synthroid PO 100 mcg 0600 IRVING Administration Losartan Potassium 100 mg 12/24/18 09:00 12/27/18 08:32 Cozaar PO 100 mg DAILY IRVING Administration Metformin HCl 1,000 mg 12/24/18 17:00 12/26/18 18:04 Glucophage Xr PO 1,000 mg QPM-WM IRV[place] Administration Metoclopramide HCl 5 mg 12/26/18 17:00 12/27/18 07:25 Reglan PO 5 mg ACHS IRVING Administration Metoprolol Succinate 25 mg 12/24/18 09:00 12/27/18 08:32 Toprol Xl PO 25 mg DAILY IRVING Administration Mometasone Furoate/Formoterol Fumar 2 puff 12/24/18 06:30 12/27/18 07:04 Dulera 200 Mcg/5 Mcg Inhaler INH 2 puff BID-RT IRVING Administration Ondansetron HCl 4 mg 12/24/18 11:51 12/24/18 20:58 Zofran IVP 4 mg Q6H PRN Administration Nausea/Vomiting Pantoprazole Sodium 40 mg 12/24/18 09:00 12/27/18 08:32 Protonix PO 40 mg DAILY IRVING Administration Polyethylene Glycol 17 gm 12/26/18 20:47 12/26/18 21:00 Miralax PO 17 gm BIDPRN PRN Administration Constipation Ropinirole HCl 2 mg 12/24/18 21:00 12/26/18 20:54 Requip PO 2 mg HS IRVING Administration - Exam General Appearance: NAD, awake alert Heart: RRR, no gallops, no rubs, normal peripheral pulses, II/IV Respiratory: CTAB, no wheezes, no rales, no ronchi, normal chest expansion, no tachypnea, normal percussion Gastrointestinal: soft, non-tender, non-distended, normal bowel sounds, no palpable masses, no hepatomegaly, no splenomegaly, no bruit Extremities - other findings: Left knee post-op dressing. No erythema. Looks good. Skin: normal turgor Psychiatric: normal affect, normal behavior, A&O x 3 Hosp A/P (1) PAC (premature atrial contraction) Code(s): I49.1 - ATRIAL PREMATURE DEPOLARIZATION Status: Acute (2) N&V (nausea and vomiting) Code(s): R11.2 - NAUSEA WITH VOMITING, UNSPECIFIED Status: Acute (3) History of arthroplasty of left knee Code(s): Z96.652 - PRESENCE OF LEFT ARTIFICIAL KNEE JOINT Status: Acute (4) COPD (chronic obstructive pulmonary disease) Status: Acute (5) Diabetes type 2, controlled Code(s): E11.9 - TYPE 2 DIABETES MELLITUS WITHOUT COMPLICATIONS Status: Chronic Qualifiers: (6) Dyslipidemia Code(s): E78.5 - HYPERLIPIDEMIA, UNSPECIFIED Status: Chronic (7) GERD (gastroesophageal reflux disease) Code(s): K21.9 - GASTRO-ESOPHAGEAL REFLUX DISEASE WITHOUT ESOPHAGITIS Status: Chronic Qualifiers: Esophagitis presence: esophagitis presence not specified Qualified Code(s) : K21.9 - Gastro-esophageal reflux disease without esophagitis (8) Hypertension Code(s): I10 - ESSENTIAL (PRIMARY) HYPERTENSION Status: Chronic Qualifiers: (9) Hypothyroidism Code(s): E03.9 - HYPOTHYROIDISM, UNSPECIFIED Status: Chronic Qualifiers: Hypothyroidism type: unspecified Qualified Code(s): E03.9 - Hypothyroidism , unspecified - Plan Discussed EKG findings. Still in NSR here. Ok to follow up with Dr. Vallecillo. 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 Gastric emptying with slight delay in emptying. Started on low dose Reglan. Appears to be tolerating it well. Possibly home later today. Attempted to discharge yesterday, but apparently she was discharged from the SNF. CM working on arrangement.
[2018-12-27 12:29] VITALS: BP 166/80; TEMP 98.2
== END 2018-12-27 13:58 ==
LOC: ERS 15:13 → 2SW 18:08
PROVIDERS: ADMIT Internal Medicine; ATTEND Internal Medicine
PROC: 0DJ08ZZ Inspection of Upper Intestinal Tract, Via Natural or Artificial Opening Endoscopic (ICD-10-PCS; principal; 2018-12-25)
DX: R11.2 Nausea with vomiting, unspecified (principal); K95.89 Other complications of other bariatric procedure; K30 Functional dyspepsia; K21.9 Gastro-esophageal reflux disease without esophagitis; E03.9 Hypothyroidism, unspecified; I48.91 Unspecified atrial fibrillation; J43.9 Emphysema, unspecified; E78.5 Hyperlipidemia, unspecified; I10 Essential (primary) hypertension; E11.9 Type 2 diabetes mellitus without complications; R06.02 Shortness of breath; R19.4 Change in bowel habit; I49.1 Atrial premature depolarization; Z87.891 Personal history of nicotine dependence; Z79.82 Long term (current) use of aspirin; Z79.84 Long term (current) use of oral hypoglycemic drugs; Z79.899 Other long term (current) drug therapy; Z96.652 Presence of left artificial knee joint; Z98.84 Bariatric surgery status
CPT/HCPCS: 43235; 71045; 71275; 78264; 80048; 82550; 82607; 82728; 82746; 82941; 82962 ×5; 83540; 83550; 83605; 83735 ×2; 84484 ×2; 85025; 85610; 85730; 90662; 93306; 94640 ×10; 94760; 96361 ×3; 96365; 96375 ×2; 96376; 99285; A9541; G0008; G0378 ×6; 36415; 36416; 80053; 84443; 90471; 96360; J0456; J0696; J1644; J2405; J2920; J3490; J7050; J7620

== ENCOUNTER 2019-04-16 14:32 | Outpatient (CLI) | payer MEDICARE, OTHER ==
--- NOTE | 2019-04-16 16:32 | BD ---
EXAM: DEXA Bone Density 04/16/19 HISTORY: Postmenopausal screening. FINDINGS: Lumbar Spine: BMD (g/cm2) T-SCORE L1 1.031 +0.4 L2 0.970 -0.5 L3 1.115 +0.3 L4 1.181 +1.1 L1-L4 1.084 +0.3 Within normal limits with no increased risk for fracture. Left hip: Femoral Neck: 0.580 -2.4 Total Femur: 0.840 -0.1 Evidence for osteopenia with increased risk for fracture. Ten year FRAX score: Major osteoporotic fracture 17%. Hip fracture 5.1%. POS: [facility]
== END 2019-04-16 14:33 | disposition home or self-care (01) ==
LOC: BICMAMMO 14:32
PROVIDERS: ATTEND Family Medicine
DX: Z13.820 Encounter for screening for osteoporosis (principal); M85.852 Other specified disorders of bone density and structure, left thigh; Z78.0 Asymptomatic menopausal state
CPT/HCPCS: 77080

== ENCOUNTER 2019-05-08 12:30 | Outpatient (CLI) | payer MEDICARE, OTHER ==
--- NOTE | 2019-05-08 13:42 | MRI ---
MRI Lumbar Spine Noncontrast: HISTORY: Lumbar radiculopathy. Low back pain radiating down right leg. COMPARISON: None FINDINGS: A bilobed 13 mm increased T2-weighted signal intensity lesion is seen in the midportion right kidney with subcentimeter increased T2-weighted signal intensity foci in region of the region of the renal sinus fat bilaterally, probably attributable to small parapelvic renal cysts with the 13 mm signal hy perintense lesion also likely related to small cyst. However, this difficult to accurately characterized on this exam. Conus medullaris is normal in morphology and terminates at the L1 level. Scattered Schmorl's nodes are seen in the lower thoracic as well as involving the lumbar vertebral kiya dies. T12-L1: Mild disc osteophyte complex is present. No significant central canal narrowing is present. N eural foramina are patent. L1-2: There is no disc bulge or disc herniation. Central spinal canal and neural foramina are patent. L2-3: Mild disc osteophyte complex with facet hypertrophic changes. Mild central canal narrowing is p resent. Neural foramina are patent. L3-4: Mild disc osteophyte complex with facet hypertrophic changes and ligamentous thickening. Mild g eneralized narrowing central spinal canal is present. Neural foramina are patent. L4-5: Broad-based disc osteophyte complex is present with severe facet hypertrophic changes and ligam entous thickening. A tiny subcentimeter increased T2-weighted signal intensity focus is seen posteromedial to the left facet joint which is seen posteriorly within the central canal in the regio n of the epidural fat likely related to a small synovial cyst measuring 7 mm. [id number] central canal narrowing is present with narrowing of the lateral recesses at this level. Mild bilater al neural foraminal narrowing is present. L5-S1: Mild disc osteophyte complex is present. Severe facet hypertrophic changes are noted with flui d signal intensity seen in the facet joints. No significant central canal narrowing is present. Right neural foramen is patent with mild encroachment on the left neural foramen. IMPRESSION: 1. Multilevel degenerative changes in the lumbar spine greatest at the L4-5 level with there is sugge stion of trace anterolisthesis of L4 and L5 and prominent facet hypertrophic changes with ligamentous thickening and disc osteophyte complex resulting in mild to moderate central canal narrow ing as well as narrowing of the lateral recesses. 2. No significant neural foraminal narrowing is seen at any level.
== END 2019-05-08 12:31 | disposition home or self-care (01) ==
LOC: BICMRI 12:30
PROVIDERS: ATTEND Anesthesiology Pain Medicine
DX: M47.26 Other spondylosis with radiculopathy, lumbar region (principal); M48.062 Spinal stenosis, lumbar region with neurogenic claudication; M43.16 Spondylolisthesis, lumbar region; M25.78 Osteophyte, vertebrae
CPT/HCPCS: 72148

== ENCOUNTER 2019-09-24 07:31 | Outpatient (CLI) | payer MEDICARE, OTHER ==
--- NOTE | 2019-09-24 07:55 | ULT ---
ULTRASOUND ABDOMEN COMPLETE: DATE: 09/24/2019 HISTORY: 79-year-old female with generalized abdominal pain FINDINGS: Liver:Normal size and echogenicity Gallbladder:Absent Common duct:11 mm Spleen:No splenomegaly Pancreas:Nonspecific sonographic appearance. Kidneys:No hydronephrosis. Abdominal aorta:Distal portion obscured by shadowing from bowel gas. Inferior vena cava:Patent where visualized. IMPRESSION: 1) status post cholecystectomy. 2) dilated common duct, probably due to loss of reservoir effect due to cholecystectomy. 3) otherwise no definite pathology identified.
== END 2019-09-24 07:32 | disposition home or self-care (01) ==
LOC: BICULT 07:31
PROVIDERS: ATTEND Internal Medicine Gastroenterology
DX: R14.0 Abdominal distension (gaseous) (principal); E11.43 Type 2 diabetes mellitus with diabetic autonomic (poly)neuropathy; K31.84 Gastroparesis; K83.8 Other specified diseases of biliary tract; Z90.49 Acquired absence of other specified parts of digestive tract
CPT/HCPCS: 93975

== ENCOUNTER 2020-07-20 12:13 | Emergency (ER) | payer MEDICARE, OTHER ==
[2020-07-20 12:47] LABS: #Basophils 0.1 thou/uL (0.0-0.2); #Eosinphils 0.2 thou/uL (0.0-0.7); #Monocytes 0.8 thou/uL (0.11-0.59); %Basophils 1.2 % (0.0-1.0); %Eosinophils 1.7 % (0.0-10.0); %Lymphocytes 24.6 % (21.0-51.0); %Monocytes 6.3 % (0.0-10.0); %Neutrophils 66.2 % (42.0-75.0); Hemoglobin 13.9 g/dL (12.0-16.0); Mean Corpuscular HGB CONC 32.6 g/dL (32.0-36.0); Mean Corpuscular Hemoglobin 30.5 pg (27.0-31.0); Mean Corpuscular Volume 93.7 fL (78.0-98.0); Mean Platelet Volume 7.7 fL (7.4-10.4); Platelet Count 248 thou/uL (130-400); RBC Distribution Width 13.7 % (11.5-14.5); Red Blood Cell (RBC) Count 4.57 mill/uL (4.20-5.40); White Blood Cell (WBC) Count 12.1 thou/uL (4.8-10.8)
[2020-07-20 13:18] LABS: ALT (SGPT) 25 U/L (8-55); AST (SGOT) 19 U/L (5-34); Albumin 4.1 g/dL (3.4-4.8); Alkaline Phosphatase 91 U/L (40-110); Anion Gap 15 mmol/L (10-20); BUN (Urea Nitrogen) 18 mg/dL (9.8-20.1); Bilirubin, Total 0.4 mg/dL (0.2-1.2); Calc. Creatinine Clearance 0 mL/min (70-130); Calcium 9.5 mg/dL (7.8-10.44); Carbon Dioxide 25 mmol/L (23-31); Chloride 103 mmol/L (98-107); Globulin 2.9 g/dL (2.4-3.5); Glucose 137 mg/dL (83-110); Potassium 4.3 mmol/L (3.5-5.1); Sodium 139 mmol/L (136-145)
== END 2020-07-20 15:41 | disposition home or self-care (01) ==
LOC: ERS 12:13
DX: R00.0 Tachycardia, unspecified (principal); E03.9 Hypothyroidism, unspecified; K21.9 Gastro-esophageal reflux disease without esophagitis; E78.5 Hyperlipidemia, unspecified; E78.00 Pure hypercholesterolemia, unspecified; I10 Essential (primary) hypertension; J44.9 Chronic obstructive pulmonary disease, unspecified; E11.9 Type 2 diabetes mellitus without complications; M19.90 Unspecified osteoarthritis, unspecified site; Z87.891 Personal history of nicotine dependence; Z79.899 Other long term (current) drug therapy
CPT/HCPCS: 71045; 80053; 84484; 85025; 93005

== ENCOUNTER 2020-09-05 07:56 | Outpatient (CLI) | payer MEDICARE, OTHER ==
[2020-09-05 08:31] LABS: Estimated GFR-MDRD - POC Greater than 90
[2020-09-05] MEDS ORDERED: Iopamidol-370 76% 500 ML 1 ML ONE (09:23)
== END 2020-09-05 07:57 | disposition home or self-care (01) ==
LOC: BICCT 07:56
PROVIDERS: ATTEND Physician Assistant Medical
DX: R63.4 Abnormal weight loss (principal); R10.30 Lower abdominal pain, unspecified; R11.0 Nausea; R19.7 Diarrhea, unspecified; I70.8 Atherosclerosis of other arteries
CPT/HCPCS: 74177; 82565; Q9967

== ENCOUNTER 2020-09-13 13:33 | Outpatient (CLI) | payer MEDICARE, OTHER | END 2020-09-13 13:34 | disposition home or self-care (01) | LOC: BICMAMMO 13:33 | PROVIDERS: ATTEND Family Medicine | DX: Z12.31 Encounter for screening mammogram for malignant neoplasm of breast (principal) | CPT/HCPCS: 77063; 77067 ==

== ENCOUNTER 2020-09-27 01:43 | Emergency (ER) | payer MEDICARE, OTHER | END 2020-09-27 05:00 | disposition home or self-care (01) | LOC: ERS 01:43 | DX: K92.2 Gastrointestinal hemorrhage, unspecified (principal); E03.9 Hypothyroidism, unspecified; K21.9 Gastro-esophageal reflux disease without esophagitis; E78.5 Hyperlipidemia, unspecified; E78.00 Pure hypercholesterolemia, unspecified; I10 Essential (primary) hypertension; E11.9 Type 2 diabetes mellitus without complications; M19.90 Unspecified osteoarthritis, unspecified site; Z87.891 Personal history of nicotine dependence; Z79.899 Other long term (current) drug therapy | CPT/HCPCS: 36415; 80053; 82274; 83690; 85025; 85610; 85730; 86850; 86900; 86901; 93005 ==

== ENCOUNTER 2021-06-29 10:30 | Inpatient (IN) | payer MEDICARE, OTHER ==
[2021-07-19] MEDS ORDERED: Fentanyl 100 MCG/2 ML VIAL ONE ×4 (08:34→13:21)
[2021-07-19] MEDS ORDERED: Midazolam HCl 2 mg/2 ml Vial ONE (08:34)
[2021-07-19] MEDS ORDERED: Tranexamic Acid 1,000 MG/10 ML VIAL ONE (08:35)
[2021-07-19] MEDS ORDERED: Sodium Chloride 0.9% 100 ML ONE (08:35)
[2021-07-19] MEDS ORDERED: Vancomycin (BATCH) 1.5 GRAM/300 ML BAG ONE (08:35)
[2021-07-19] MEDS ORDERED: Fentanyl 100 MCG/2 ML VIAL IV PRN (09:18)
[2021-07-19] MEDS ORDERED: Zolpidem Tartrate 5 MG TAB PO PRN (09:30)
[2021-07-19] MEDS ORDERED: Ropivacaine 0.2% 550 ML 550 ML NERVE BLCK SCH (09:30)
[2021-07-19] MEDS ORDERED: HYDROcodone/Acetaminophen 10/325 mg Tablet PO PRN (09:30)
[2021-07-19] MEDS ORDERED: Bupivacaine PF 0.5% 30 ML VIAL ONE (09:55)
[2021-07-19] MEDS ORDERED: fentaNYL Citrate/PF 100 MCG/2 ML SYRINGE ONE (09:56)
[2021-07-19] MEDS ORDERED: ceFAZolin (BATCH) 2 GM/100 ML BAG ONE (09:57)
[2021-07-19] MEDS ORDERED: Bupivacaine HCl 0.5%/Epinephrine 1:200,000/PF 30 ml Vial ONE (10:17)
[2021-07-19] MEDS ORDERED: Ondansetron PF 4 MG/2 ML Vial ONE (10:17)
[2021-07-19] MEDS ORDERED: Lidocaine 1% PF 5 ML VIAL ONE (10:17)
[2021-07-19] MEDS ORDERED: PROPOFOL 200 MG/20 ML VIAL ONE (10:17)
[2021-07-19] MEDS ORDERED: Dexamethasone 20 MG/5 ML VIAL ONE (10:17)
[2021-07-19] MEDS ORDERED: PHENYLEPHRINE-NS 100 MCG/ML 10 ML SYRINGE ONE (10:17)
[2021-07-19] MEDS ORDERED: Promethazine HCl 25 MG/ML VIAL IM PRN (11:56)
[2021-07-19] MEDS ORDERED: Promethazine HCl 25 MG/ML VIAL IVPB PRN (11:56)
[2021-07-19] MEDS ORDERED: Ondansetron HCl/PF 4 MG/2 ML Vial IVP PRN (11:56)
[2021-07-19] MEDS ORDERED: Ropivacaine 0.5% HCl/PF (150 MG/30 ML VIAL) ONE (12:03)
[2021-07-19] MEDS ORDERED: Ketorolac Tromethamine 30 MG/ML VIAL ONE (12:42)
[2021-07-19] MEDS ORDERED: Ketorolac Tromethamine 30 MG/ML VIAL IVP SCH (12:45)
[2021-07-19] MEDS ORDERED: Acetaminophen 325 MG TAB PO PRN (14:41)
[2021-07-19] MEDS ORDERED: diphenhydrAMINE 25 MG CAP PO PRN (14:41)
[2021-07-19] MEDS: Ketorolac Tromethamine 30 MG/ML VIAL IVP SCH ×3 (14:46→23:38)
[2021-07-19] MEDS: HYDROcodone/Acetaminophen 10/325 mg Tablet PO PRN ×2 (15:05→20:18)
[2021-07-19] MEDS: Sodium Chloride 0.9% 1,000 ML IV SCH (15:06)
[2021-07-19] MEDS ORDERED: Dextrose 50% Abboject 50 ML SYRINGE SLOW IVP PRN (16:30)
[2021-07-19] MEDS ORDERED: Dextrose 5% in Water 1,000 ML IV PRN (16:30)
[2021-07-19] MEDS ORDERED: HumaLOG 300 UNITS/3 ML VIAL SC PRN (16:30)
[2021-07-19] MEDS ORDERED: Famotidine 20 MG TAB PO PRN (16:45)
[2021-07-19] MEDS: Ipratropium Bromide 2.5 ml Neb NEB SCH ×2 (18:32→23:26)
[2021-07-19] MEDS: Mometasone 200 MCG/Formoterol 5 MCG 120 PUFF INHALER INH SCH (18:33)
[2021-07-19] MEDS: Ondansetron PF 4 MG/2 ML Vial IVP PRN (18:48)
[2021-07-19] MEDS: Aspirin 81 mg Enteric Coated Tablet PO SCH (20:15)
[2021-07-19] MEDS: Atorvastatin Calcium 10 MG TAB PO SCH (20:15)
[2021-07-19] MEDS: Ferrous Gluconate 324 MG TAB PO SCH (20:16)
[2021-07-19] MEDS: Cholecalciferol 1,000 UNITS (25 MCG) TAB PO SCH (20:16)
[2021-07-19] MEDS: Senokot S 8.6-50 MG TAB PO SCH (20:17)
[2021-07-19] MEDS ORDERED: Vancomycin 1 GM in Premix Bag 1 BAG IVPB SCH (20:30)
[2021-07-19] MEDS ORDERED: ALPRAZolam 0.25 MG TAB PO PRN (20:41)
[2021-07-19] MEDS ORDERED: Doxylamine 25 MG TAB PO PRN (20:42)
[2021-07-19] MEDS ORDERED: Hyoscyamine Sulfate SL 0.125 mg Tablet SL PRN (20:44)
[2021-07-19] MEDS ORDERED: Losartan 25 MG TAB PO SCH (21:00)
[2021-07-19] MEDS ORDERED: rOPINIRole HCl 2 MG TAB PO SCH (21:00)
[2021-07-19] MEDS ORDERED: rOPINIRole HCl 0.5 MG TAB PO SCH (21:15)
[2021-07-19] MEDS ORDERED: Fish Oil 1,000 MG CAP PO PRN (21:19)
[2021-07-19] MEDS ORDERED: metFORMIN 500 MG TAB PO SCH (21:30)
[2021-07-19] MEDS ORDERED: Alogliptin 6.25 MG TAB PO SCH (21:30)
[2021-07-19] MEDS: Promethazine HCl 25 MG/ML VIAL IM PRN (21:31)
[2021-07-19] MEDS: ceFAZolin (BATCH) 2 GM in Premix Bag 1 BAG IVPB SCH (21:44)
[2021-07-19] MEDS ORDERED: ceFAZolin 2 GM/Dextrose 50 ML 2 GM in Premix Bag 1 BAG IVPB SCH (22:00)
[2021-07-20] MEDS: rOPINIRole HCl 0.5 MG TAB PO SCH ×2 (00:54→21:12)
[2021-07-20] MEDS: HYDROcodone/Acetaminophen 10/325 mg Tablet PO PRN ×4 (04:22→21:22)
[2021-07-20] MEDS: Sodium Chloride 0.9% 1,000 ML IV SCH ×3 (04:43→23:13)
[2021-07-20] MEDS: Levothyroxine Sodium 88 MCG TAB PO SCH (05:35)
[2021-07-20] MEDS: ceFAZolin (BATCH) 2 GM in Premix Bag 1 BAG IVPB SCH (05:35)
[2021-07-20] MEDS: Ketorolac Tromethamine 30 MG/ML VIAL IVP SCH ×3 (05:36→17:21)
[2021-07-20 07:16] LABS: Hemoglobin 10.4 g/dL (12.0-16.0); Mean Corpuscular HGB CONC 33.6 g/dL (32.0-36.0); Mean Corpuscular Hemoglobin 33.5 pg (27.0-31.0); Mean Corpuscular Volume 99.7 fL (78.0-98.0); Mean Platelet Volume 8.2 fL (7.4-10.4); Platelet Count 167 thou/uL (130-400); RBC Distribution Width 13.1 % (11.5-14.5); White Blood Cell (WBC) Count 10.2 thou/uL (4.8-10.8)
[2021-07-20] MEDS: Ipratropium Bromide 2.5 ml Neb NEB SCH ×3 (07:25→18:50)
[2021-07-20] MEDS: Mometasone 200 MCG/Formoterol 5 MCG 120 PUFF INHALER INH SCH ×2 (07:26→18:51)
[2021-07-20] MEDS: Aspirin 81 mg Enteric Coated Tablet PO SCH ×2 (09:43→21:12)
[2021-07-20] MEDS: Senokot S 8.6-50 MG TAB PO SCH ×2 (09:43→21:13)
[2021-07-20] MEDS: Ferrous Gluconate 324 MG TAB PO SCH ×2 (09:43→21:15)
[2021-07-20] MEDS: Multivitamin W/ Minerals 1 TAB PO SCH (09:43)
[2021-07-20] MEDS: traMADol HCl 50 MG TAB PO PRN (11:52)
[2021-07-20] MEDS ORDERED: Hyoscyamine Sulfate SL 0.125 mg Tablet SL PRN (12:27)
[2021-07-20] MEDS ORDERED: Ondansetron ODT 4 MG TAB PO PRN (12:27)
[2021-07-20] MEDS ORDERED: Doxylamine 25 MG TAB PO PRN (12:27)
[2021-07-20 12:34] VITALS: BMI 28.1
[2021-07-20] MEDS ORDERED: Fish Oil 1,000 MG CAP PO PRN (12:37)
[2021-07-20] MEDS ORDERED: metFORMIN 500 MG TAB PO SCH (17:00)
[2021-07-20] MEDS ORDERED: Alogliptin 6.25 MG TAB PO SCH (17:00)
[2021-07-20] MEDS: metFORMIN 500 MG TAB PO SCH (17:17)
[2021-07-20] MEDS: Alogliptin 6.25 MG TAB PO SCH (17:19)
[2021-07-20] MEDS ORDERED: rOPINIRole HCl 0.5 MG TAB PO SCH (21:00)
[2021-07-20] MEDS: Losartan 25 MG TAB PO SCH (21:14)
[2021-07-20] MEDS: Cholecalciferol 1,000 UNITS (25 MCG) TAB PO SCH (21:15)
[2021-07-20] MEDS: Atorvastatin Calcium 10 MG TAB PO SCH (21:22)
[2021-07-21] MEDS: Ketorolac Tromethamine 30 MG/ML VIAL IVP SCH ×2 (00:44→04:52)
[2021-07-21] MEDS: traMADol HCl 50 MG TAB PO PRN ×3 (00:45→16:54)
[2021-07-21] MEDS: Ipratropium Bromide 2.5 ml Neb NEB SCH ×4 (01:15→18:44)
[2021-07-21] MEDS: HYDROcodone/Acetaminophen 10/325 mg Tablet PO PRN ×3 (04:43→21:01)
[2021-07-21 05:32] LABS: Hemoglobin 9.8 g/dL (12.0-16.0); Mean Corpuscular HGB CONC 33.1 g/dL (32.0-36.0); Mean Corpuscular Hemoglobin 32.7 pg (27.0-31.0); Mean Corpuscular Volume 98.7 fL (78.0-98.0); Mean Platelet Volume 7.6 fL (7.4-10.4); Platelet Count 151 thou/uL (130-400); RBC Distribution Width 13.1 % (11.5-14.5); White Blood Cell (WBC) Count 6.6 thou/uL (4.8-10.8)
[2021-07-21] MEDS: Levothyroxine Sodium 88 MCG TAB PO SCH (06:30)
[2021-07-21] MEDS: Mometasone 200 MCG/Formoterol 5 MCG 120 PUFF INHALER INH SCH ×2 (07:03→18:45)
[2021-07-21] MEDS: ALPRAZolam 0.25 MG TAB PO PRN (10:11)
[2021-07-21] MEDS: Aspirin 81 mg Enteric Coated Tablet PO SCH ×2 (10:11→20:59)
[2021-07-21] MEDS: Multivitamin W/ Minerals 1 TAB PO SCH (10:12)
[2021-07-21] MEDS: Ferrous Gluconate 324 MG TAB PO SCH ×2 (10:12→20:59)
[2021-07-21] MEDS: Sodium Chloride 0.9% 1,000 ML IV SCH (10:20)
[2021-07-21] MEDS: Senokot S 8.6-50 MG TAB PO SCH ×2 (12:58→20:59)
[2021-07-21] MEDS ORDERED: Furosemide 40 MG/4 ML VIAL SLOW IVP SCH (15:30)
[2021-07-21] MEDS ORDERED: methylPREDNISolone Sod Succ 40 MG VIAL IVP SCH (15:45)
[2021-07-21] MEDS: metFORMIN 500 MG TAB PO SCH (16:54)
[2021-07-21] MEDS: Alogliptin 6.25 MG TAB PO SCH (17:07)
[2021-07-21] MEDS: rOPINIRole HCl 0.5 MG TAB PO SCH (20:57)
[2021-07-21] MEDS: methylPREDNISolone Sod Succ 40 MG VIAL IVP SCH (20:58)
[2021-07-21] MEDS: Losartan 25 MG TAB PO SCH (20:58)
[2021-07-21] MEDS: Cholecalciferol 1,000 UNITS (25 MCG) TAB PO SCH (20:59)
[2021-07-21] MEDS: Atorvastatin Calcium 10 MG TAB PO SCH (20:59)
[2021-07-22] MEDS: Ipratropium Bromide 2.5 ml Neb NEB SCH ×4 (01:22→19:23)
[2021-07-22 05:27] LABS: Hemoglobin 9.7 g/dL (12.0-16.0); Mean Corpuscular HGB CONC 33.9 g/dL (32.0-36.0); Mean Corpuscular Hemoglobin 33.2 pg (27.0-31.0); Mean Platelet Volume 7.7 fL (7.4-10.4); Platelet Count 160 thou/uL (130-400); RBC Distribution Width 12.6 % (11.5-14.5); White Blood Cell (WBC) Count 5.7 thou/uL (4.8-10.8)
[2021-07-22] MEDS: Levothyroxine Sodium 88 MCG TAB PO SCH (05:31)
[2021-07-22] MEDS: HumaLOG 300 UNITS/3 ML VIAL SC PRN ×2 (06:19→17:54)
[2021-07-22] MEDS: Mometasone 200 MCG/Formoterol 5 MCG 120 PUFF INHALER INH SCH ×2 (07:19→19:24)
[2021-07-22] MEDS: Multivitamin W/ Minerals 1 TAB PO SCH (09:28)
[2021-07-22] MEDS: Aspirin 81 mg Enteric Coated Tablet PO SCH ×2 (09:28→21:15)
[2021-07-22] MEDS: methylPREDNISolone Sod Succ 40 MG VIAL IVP SCH (09:28)
[2021-07-22] MEDS: Ferrous Gluconate 324 MG TAB PO SCH ×2 (09:28→21:16)
[2021-07-22] MEDS: Senokot S 8.6-50 MG TAB PO SCH ×2 (09:28→21:15)
[2021-07-22] MEDS: HYDROcodone/Acetaminophen 10/325 mg Tablet PO PRN ×2 (09:38→21:14)
[2021-07-22] MEDS ORDERED: predniSONE 20 MG TAB PO SCH (13:30)
[2021-07-22] MEDS: Alogliptin 6.25 MG TAB PO SCH (17:53)
[2021-07-22] MEDS: metFORMIN 500 MG TAB PO SCH (17:53)
[2021-07-22] MEDS: rOPINIRole HCl 0.5 MG TAB PO SCH (21:14)
[2021-07-22] MEDS: Cholecalciferol 1,000 UNITS (25 MCG) TAB PO SCH (21:15)
[2021-07-22] MEDS: Losartan 25 MG TAB PO SCH (21:15)
[2021-07-22] MEDS: Atorvastatin Calcium 10 MG TAB PO SCH (21:16)
[2021-07-22] MEDS: ALPRAZolam 0.25 MG TAB PO PRN (21:33)
[2021-07-22] MEDS: traMADol HCl 50 MG TAB PO PRN (23:41)
[2021-07-23] MEDS: Ipratropium Bromide 2.5 ml Neb NEB SCH ×4 (02:05→19:09)
[2021-07-23] MEDS: HYDROcodone/Acetaminophen 10/325 mg Tablet PO PRN ×3 (05:36→21:37)
[2021-07-23] MEDS: Levothyroxine Sodium 88 MCG TAB PO SCH (05:36)
[2021-07-23 06:04] LABS: Hemoglobin 9.4 g/dL (12.0-16.0); Mean Corpuscular HGB CONC 33.8 g/dL (32.0-36.0); Mean Corpuscular Hemoglobin 33.1 pg (27.0-31.0); Mean Corpuscular Volume 98.1 fL (78.0-98.0); Mean Platelet Volume 7.7 fL (7.4-10.4); Platelet Count 218 thou/uL (130-400); RBC Distribution Width 12.9 % (11.5-14.5); Red Blood Cell (RBC) Count 2.84 mill/uL (4.20-5.40); White Blood Cell (WBC) Count 9.7 thou/uL (4.8-10.8)
[2021-07-23] MEDS: Mometasone 200 MCG/Formoterol 5 MCG 120 PUFF INHALER INH SCH ×2 (07:55→19:10)
[2021-07-23] MEDS: Ondansetron PF 4 MG/2 ML Vial IVP PRN (09:14)
[2021-07-23] MEDS: Ferrous Gluconate 324 MG TAB PO SCH ×2 (09:14→21:35)
[2021-07-23] MEDS: Multivitamin W/ Minerals 1 TAB PO SCH (09:14)
[2021-07-23] MEDS: Senokot S 8.6-50 MG TAB PO SCH ×2 (09:14→21:36)
[2021-07-23] MEDS: Aspirin 81 mg Enteric Coated Tablet PO SCH ×2 (09:14→21:35)
[2021-07-23] MEDS: metFORMIN 500 MG TAB PO SCH (17:40)
[2021-07-23] MEDS: Alogliptin 6.25 MG TAB PO SCH (17:40)
[2021-07-23] MEDS: rOPINIRole HCl 0.5 MG TAB PO SCH (21:35)
[2021-07-23] MEDS: Losartan 25 MG TAB PO SCH (21:36)
[2021-07-23] MEDS: Cholecalciferol 1,000 UNITS (25 MCG) TAB PO SCH (21:36)
[2021-07-23] MEDS: ALPRAZolam 0.25 MG TAB PO PRN (21:36)
[2021-07-23] MEDS: Heparin 5,000 UNITS/ML VIAL SC SCH (21:36)
[2021-07-23] MEDS: Atorvastatin Calcium 10 MG TAB PO SCH (21:36)
[2021-07-23] MEDS: traMADol HCl 50 MG TAB PO PRN (23:47)
[2021-07-24] MEDS: Ipratropium Bromide 2.5 ml Neb NEB SCH ×3 (01:57→13:09)
[2021-07-24] MEDS: HYDROcodone/Acetaminophen 10/325 mg Tablet PO PRN ×2 (05:14→09:53)
[2021-07-24] MEDS: Levothyroxine Sodium 88 MCG TAB PO SCH (05:14)
[2021-07-24] MEDS: Mometasone 200 MCG/Formoterol 5 MCG 120 PUFF INHALER INH SCH (06:55)
[2021-07-24 07:14] LABS: Hemoglobin 9.4 g/dL (12.0-16.0); Mean Corpuscular HGB CONC 35.2 g/dL (32.0-36.0); Mean Corpuscular Volume 99.3 fL (78.0-98.0); Mean Platelet Volume 7.7 fL (7.4-10.4); Platelet Count 235 thou/uL (130-400); RBC Distribution Width 13.5 % (11.5-14.5); Red Blood Cell (RBC) Count 2.69 mill/uL (4.20-5.40); White Blood Cell (WBC) Count 7.3 thou/uL (4.8-10.8)
[2021-07-24] MEDS: Ondansetron PF 4 MG/2 ML Vial IVP PRN (08:54)
[2021-07-24] MEDS: Multivitamin W/ Minerals 1 TAB PO SCH (08:54)
[2021-07-24] MEDS: Aspirin 81 mg Enteric Coated Tablet PO SCH (08:54)
[2021-07-24] MEDS: Ferrous Gluconate 324 MG TAB PO SCH (08:54)
[2021-07-24] MEDS: Senokot S 8.6-50 MG TAB PO SCH (08:55)
[2021-07-24] MEDS: Heparin 5,000 UNITS/ML VIAL SC SCH (09:09)
[2021-07-24] MEDS: Promethazine HCl 25 MG/ML VIAL IM PRN (09:54)
[2021-07-24 12:54] VITALS: BP 112/66; TEMP 98.2
== END 2021-07-24 14:10 | DRG 470 ==
LOC: EDSTATUS 07-04 10:30 → SURG A 07-19 08:00 → SJJU 07-19 14:39
PROVIDERS: ADMIT Orthopaedic Surgery; ATTEND Hospitalist
PROC: 0SRC0J9 Replacement of Right Knee Joint with Synthetic Substitute, Cemented, Open Approach (ICD-10-PCS; principal; 2021-07-19)
PROC: 3E0T3BZ Introduction of Anesthetic Agent into Peripheral Nerves and Plexi, Percutaneous Approach (ICD-10-PCS; 2021-07-19)
DX: M17.11 Unilateral primary osteoarthritis, right knee (principal); J96.11 Chronic respiratory failure with hypoxia; M21.061 Valgus deformity, not elsewhere classified, right knee; I10 Essential (primary) hypertension; E78.5 Hyperlipidemia, unspecified; E11.9 Type 2 diabetes mellitus without complications; E03.9 Hypothyroidism, unspecified; J44.9 Chronic obstructive pulmonary disease, unspecified; K21.9 Gastro-esophageal reflux disease without esophagitis; I25.10 Atherosclerotic heart disease of native coronary artery without angina pectoris; Z96.641 Presence of right artificial hip joint; Z96.612 Presence of left artificial shoulder joint; Z96.652 Presence of left artificial knee joint; M79.89 Other specified soft tissue disorders; Z87.891 Personal history of nicotine dependence; Z79.899 Other long term (current) drug therapy; Z79.890 Hormone replacement therapy; Z99.81 Dependence on supplemental oxygen; Z79.84 Long term (current) use of oral hypoglycemic drugs; Z79.51 Long term (current) use of inhaled steroids
CPT/HCPCS: 36415; 36416; 85027; 94640; A4306; C1713; C1776; J0690; J1100; J1644; J1815; J1885; J2250; J2405; J2550; J2704; J2795; J2920; J3010; J3370; J3490; J7050; J7512; S0020

== ENCOUNTER 2021-07-14 11:09 | Outpatient (CLI) | payer MEDICARE, OTHER ==
[2021-07-14 13:59] LABS: #Basophils 0.1 10x3/uL (0.0-0.2); #Eosinphils 0.2 10x3/uL (0.0-0.5); #Monocytes 0.8 10x3/uL (0.0-1.1); #Neutrophils 5.8 10x3/uL (1.5-8.4); %Basophils 0.8 % (0.0-2.0); %Eosinophils 2.3 % (0.0-6.0); %Lymphocytes 21.4 % (18.0-47.0); %Monocytes 8.8 % (0.0-10.0); %Neutrophils 65.6 % (40.0-75.0); Hemoglobin 12.7 g/dL (12.0-15.5); Mean Corpuscular HGB CONC 32.2 g/dL (32.0-36.0); Mean Corpuscular Hemoglobin 30.5 pg (27.0-33.0); Mean Platelet Volume 10.4 fl (7.4-10.4); Platelet Count 280 10x3/uL (150-450); RBC Distribution Width 14.8 % (11.5-14.5); Red Blood Cell (RBC) Count 4.16 10x6/uL (3.90-5.03); White Blood Cell (WBC) Count 8.9 10x3/uL (3.5-10.5)
[2021-07-14 14:07] LABS: Prothrombin Time 10.7 sec (9.5-12.1)
[2021-07-14 14:11] LABS: Anion Gap 14 mmol/L (10-20); BUN (Urea Nitrogen) 23 mg/dL (9.8-20.1); Calc. Creatinine Clearance 0 mL/min (70-130); Calcium 9.1 mg/dL (7.8-10.44); Carbon Dioxide 27 mmol/L (23-31); Chloride 104 mmol/L (98-107); Glucose 96 mg/dL (83-110); Sodium 140 mmol/L (136-145)
[2021-07-15 12:27] LABS: SARS-CoV-2 PCR by NAA Not Detected (NotDetected)
== END 2021-07-14 11:10 | disposition home or self-care (01) ==
LOC: LABBT 11:09
PROVIDERS: ATTEND Orthopaedic Surgery
DX: Z01.818 Encounter for other preprocedural examination (principal); M17.11 Unilateral primary osteoarthritis, right knee; Z20.822 Contact with and (suspected) exposure to COVID-19
CPT/HCPCS: 80048; 85025; 85610; 87081; 93005; U0003; U0005; 93010